=== PATIENT | female | born 1995 | race Caucasian/White ===

== ENCOUNTER 2017-06-10 19:51 | Emergency (ER) | payer OTHER, SELFPAY ==
--- NOTE | 2017-06-10 20:18 | EDM.PDOC ---
ED HPI GENERAL MEDICAL PROBLEM - General Chief Complaint: General Stated Complaint: SOB Time Seen by Provider: 06/10/17 20:07 - History of Present Illness INITIAL COMMENTS - FREE TEXT/NARRATIVE: 21-year-old female presents emergency room with decreased ability to speak and ambulate. This started about an hour and half prior to arrival. About an hour prior to developing these symptoms the patient had some injections into her low back more like acupuncture. Patient has chronic low back problems and hip pain and in the past this was thought to be due to her planned hockey and it was advised that she stop playing hockey. The patient had a flu shot a couple of weeks ago. She denies any drug or alcohol use. This evening the patient became a little shaky with trying to move and had a hard time maintaining her coordination. She has no history of anxiety in the past. She has no history of weakness or problems such as this. Prior to developing his symptoms patient was doing fine and was normal she denies any recent illnesses no fevers or chills. She has had a mild cough. No GI symptoms. - Related Data Allergies Allergy/AdvReac Type Severity Reaction Status Date / Time No Known Allergies Allergy Verified 06/10/17 19:59 Home Meds: Home Meds . [No Known Home Meds] 06/10/17 [History] Social & Family History - Tobacco Use Smoking Status *Q: Never Smoker Second Hand Smoke Exposure: No - Caffeine Use Caffeine Use: Reports: Coffee - Recreational Drug Use Recreational Drug Use: No ED ROS GENERAL - Review of Systems Review Of Systems: See Below Constitutional: Denies: Fever, Chills HEENT: Reports: No Symptoms Respiratory: Reports: No Symptoms Cardiovascular: Reports: No Symptoms GI/Abdominal: Reports: No Symptoms : Reports: No Symptoms ED EXAM, GENERAL - Physical Exam Exam: See Below Exam Limited By: Other (The patient develops shakes are coarse tremor with any sort of muscle activity especially with her lower extremities 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 No: Lymphadenopathy (L), Lymphadenopathy (R) Respiratory/Chest: No Respiratory Distress, Lungs Clear, Normal Breath Sounds Cardiovascular: Normal Peripheral Pulses, Regular Rate, Rhythm, No Edema GI/Abdominal: Normal Bowel Sounds, Soft, Non-Tender Back Exam: Normal Inspection, Muscle Spasm (She has significant paraspinous muscle spasm this is worsened when she tries to move her lower extremities). No : Vertebral Tenderness Extremities: Normal Inspection, No Pedal Edema Neurological: Alert, Slow to Respond, Other (Deep tendon reflexes are brisk at the brachial radialis and patella tendons bilaterally) Psychiatric: Anxious Course - Vital Signs Last Recorded V/S: Last Vital Signs Temp 36.8 C 06/10/17 19:57 Pulse 104 H 06/10/17 19:57 Resp 22 H 06/10/17 19:57 BP 147/115 H 06/10/17 19:57 Pulse Ox 99 06/10/17 19:57 - Orders/Labs/Meds Orders: Active Orders 24 hr Category Date Time Status Head wo Cont [CT] Stat Exams 06/10/17 22:01 Taken Lumbar Spine 2 or 3V [CR] Stat Exams 06/10/17 22:01 Taken Labs: Laboratory Tests 06/10/17 06/10/17 06/10/17 Range/Units 20:20 20:20 20:20 WBC 6.57 (3.98-10.04) K/mm3 RBC 4.25 (3.98-5.22) M/mm3 Hgb 13.1 (11.2-15.7) gm/L Hct 38.0 (34.1-44.9) % MCV 89.4 (79.4-94.8) fl MCH 30.8 (25.6-32.2) pg MCHC 34.5 (32.2-35.5) g/dl RDW Std Deviation 39.0 (36.4-46.3) fL Plt Count 367 (182-369) K/mm3 MPV 9.1 L (9.4-12.3) fl Neutrophils % (Manual) 49 (40-60) % Band Neutrophils % 0 (0-10) % Lymphocytes % (Manual) 36 (20-40) % Atypical Lymphs % 0 % Monocytes % (Manual) 11 H (2-10) % Eosinophils % (Manual) 4 (0.7-5.8) % Basophils % (Manual) 0 L (0.1-1.2) Platelet Estimate Adequate Plt Morphology Comment Normal RBC Morph Comment Normal ESR 14 (0-20) mm/hr Sodium 142 (136-145) mEq/L Potassium 3.5 (3.5-5.1) mEq/L Chloride 104 (98-107) mEq/L Carbon Dioxide 26 (21-32) mEq/L Anion Gap 15.5 H (5-15) BUN 14 (7-18) mg/dL Creatinine 0.9 (0.55-1.02) mg/dL Est Cr Clr Drug Dosing 97.77 mL/min Estimated GFR (MDRD) > 60 (>60) mL/min BUN/Creatinine Ratio 15.6 (14-18) Glucose 93 (74-106) mg/dL Calcium 9.4 (8.5-10.1) mg/dL Total Bilirubin 0.4 (0.2-1.0) mg/dL AST 18 (15-37) U/L ALT 17 (14-59) U/L Alkaline Phosphatase 64 (46-116) U/L Creatine Kinase (26-192) U/L C-Reactive Protein < 0.2 (<1.0) mg/dL Total Protein 7.6 (6.4-8.2) g/dl Albumin 4.5 (3.4-5.0) g/dl Globulin 3.1 gm/dL Albumin/Globulin Ratio 1.5 (1-2) Urine Color (Yellow) Urine Appearance (Clear) Urine pH (5.0-8.0) Ur Specific [place] (1.005-1.030) Urine Protein (Negative) Urine Glucose (UA) (Negative) Urine Ketones (Negative) Urine Occult Blood (Negative) Urine Nitrite (Negative) Urine Bilirubin (Negative) Urine Urobilinogen (0.2-1.0) Ur Leukocyte Esterase (Negative) Urine RBC (0-5) /hpf Urine WBC (0-5) /hpf Ur Epithelial Cells (0-5) /hpf Urine Bacteria (FEW) /hpf Urine Mucus (FEW) /hpf Urine HCG, Qual (NEGATIVE) Urine Opiates Screen (NEGATIVE) Ur Buprenorphine Scrn (NEGATIVE) Ur Oxycodone Screen (NEGATIVE) Urine Methadone Screen (NEGATIVE) Ur Propoxyphene Screen (NEGATIVE) Ur Barbiturates Screen (NEGATIVE) Ur Tricyclics Screen (NEGATIVE) Ur Phencyclidine Scrn (NEGATIVE) Ur Amphetamine Screen (NEGATIVE) U Methamphetamines Scrn (NEGATIVE) U Benzodiazepines Scrn (NEGATIVE) U Cocaine Metab Screen (NEGATIVE) U Marijuana (THC) Screen (NEGATIVE) Ethyl Alcohol 0.00 (0.00) gm% 06/10/17 06/10/17 06/10/17 Range/Units 20:20 20:45 20:45 WBC (3.98-10.04) K/mm3 RBC (3.98-5.22) M/mm3 Hgb (11.2-15.7) gm/L Hct (34.1-44.9) % MCV (79.4-94.8) fl MCH (25.6-32.2) pg MCHC (32.2-35.5) g/dl RDW Std Deviation (36.4-46.3) fL Plt Count (182-369) K/mm3 MPV (9.4-12.3) fl Neutrophils % (Manual) (40-60) % Band Neutrophils % (0-10) % Lymphocytes % (Manual) (20-40) % Atypical Lymphs % % Monocytes % (Manual) (2-10) % Eosinophils % (Manual) (0.7-5.8) % Basophils % (Manual) (0.1-1.2) Platelet Estimate Plt Morphology Comment RBC Morph Comment ESR (0-20) mm/hr Sodium (136-145) mEq/L Potassium (3.5-5.1) mEq/L Chloride (98-107) mEq/L Carbon Dioxide (21-32) mEq/L Anion Gap (5-15) BUN (7-18) mg/dL Creatinine (0.55-1.02) mg/dL Est Cr Clr Drug Dosing mL/min Estimated GFR (MDRD) (>60) mL/min BUN/Creatinine Ratio (14-18) Glucose (74-106) mg/dL Calcium (8.5-10.1) mg/dL Total Bilirubin (0.2-1.0) mg/dL AST (15-37) U/L ALT (14-59) U/L Alkaline Phosphatase (46-116) U/L Creatine Kinase 91 (26-192) U/L C-Reactive Protein (<1.0) mg/dL Total Protein (6.4-8.2) g/dl Albumin (3.4-5.0) g/dl Globulin gm/dL Albumin/Globulin Ratio (1-2) Urine Color Yellow (Yellow) Urine Appearance Clear (Clear) Urine pH 6.5 (5.0-8.0) Ur Specific [place] 1.020 (1.005-1.030) Urine Protein Negative (Negative) Urine Glucose (UA) Negative (Negative) Urine Ketones Negative (Negative) Urine Occult Blood Negative (Negative) Urine Nitrite Negative (Negative) Urine Bilirubin Negative (Negative) Urine Urobilinogen 0.2 (0.2-1.0) Ur Leukocyte Esterase Negative (Negative) Urine RBC 0-5 (0-5) /hpf Urine WBC 0-5 (0-5) /hpf Ur Epithelial Cells 0-5 (0-5) /hpf Urine Bacteria Rare (FEW) /hpf Urine Mucus Not seen (FEW) /hpf Urine HCG, Qual (NEGATIVE) Urine Opiates Screen Negative (NEGATIVE) Ur Buprenorphine Scrn Negative (NEGATIVE) Ur Oxycodone Screen Negative (NEGATIVE) Urine Methadone Screen Negative (NEGATIVE) Ur Propoxyphene Screen Negative (NEGATIVE) Ur Barbiturates Screen Negative (NEGATIVE) Ur Tricyclics Screen Negative (NEGATIVE) Ur Phencyclidine Scrn Negative (NEGATIVE) Ur Amphetamine Screen Negative (NEGATIVE) U Methamphetamines Scrn Negative (NEGATIVE) U Benzodiazepines Scrn Negative (NEGATIVE) U Cocaine Metab Screen Negative (NEGATIVE) U Marijuana (THC) Screen Negative (NEGATIVE) Ethyl Alcohol (0.00) gm% 06/10/17 Range/Units 20:45 WBC (3.98-10.04) K/mm3 RBC (3.98-5.22) M/mm3 Hgb (11.2-15.7) gm/L Hct (34.1-44.9) % MCV (79.4-94.8) fl MCH (25.6-32.2) pg MCHC (32.2-35.5) g/dl RDW Std Deviation (36.4-46.3) fL Plt Count (182-369) K/mm3 MPV (9.4-12.3) fl Neutrophils % (Manual) (40-60) % Band Neutrophils % (0-10) % Lymphocytes % (Manual) (20-40) % Atypical Lymphs % % Monocytes % (Manual) (2-10) % Eosinophils % (Manual) (0.7-5.8) % Basophils % (Manual) (0.1-1.2) Platelet Estimate Plt Morphology Comment RBC Morph Comment ESR (0-20) mm/hr Sodium (136-145) mEq/L Potassium (3.5-5.1) mEq/L Chloride (98-107) mEq/L Carbon Dioxide (21-32) mEq/L Anion Gap (5-15) BUN (7-18) mg/dL Creatinine (0.55-1.02) mg/dL Est Cr Clr Drug Dosing mL/min Estimated GFR (MDRD) (>60) mL/min BUN/Creatinine Ratio (14-18) Glucose (74-106) mg/dL Calcium (8.5-10.1) mg/dL Total Bilirubin (0.2-1.0) mg/dL AST (15-37) U/L ALT (14-59) U/L Alkaline Phosphatase (46-116) U/L Creatine Kinase (26-192) U/L C-Reactive Protein (<1.0) mg/dL Total Protein (6.4-8.2) g/dl Albumin (3.4-5.0) g/dl Globulin gm/dL Albumin/Globulin Ratio (1-2) Urine Color (Yellow) Urine Appearance (Clear) Urine pH (5.0-8.0) Ur Specific [place] (1.005-1.030) Urine Protein (Negative) Urine Glucose (UA) (Negative) Urine Ketones (Negative) Urine Occult Blood (Negative) Urine Nitrite (Negative) Urine Bilirubin (Negative) Urine Urobilinogen (0.2-1.0) Ur Leukocyte Esterase (Negative) Urine RBC (0-5) /hpf Urine WBC (0-5) /hpf Ur Epithelial Cells (0-5) /hpf Urine Bacteria (FEW) /hpf Urine Mucus (FEW) /hpf Urine HCG, Qual Negative (NEGATIVE) Urine Opiates Screen (NEGATIVE) Ur Buprenorphine Scrn (NEGATIVE) Ur Oxycodone Screen (NEGATIVE) Urine Methadone Screen (NEGATIVE) Ur Propoxyphene Screen (NEGATIVE) Ur Barbiturates Screen (NEGATIVE) Ur Tricyclics Screen (NEGATIVE) Ur Phencyclidine Scrn (NEGATIVE) Ur Amphetamine Screen (NEGATIVE) U Methamphetamines Scrn (NEGATIVE) U Benzodiazepines Scrn (NEGATIVE) U Cocaine Metab Screen (NEGATIVE) U Marijuana (THC) Screen (NEGATIVE) Ethyl Alcohol (0.00) gm% Meds: Medications Discontinued Medications Generic Name Dose Route Start Last Admin Trade Name Krys PRN Reason Stop Dose Admin Lactated Ringer's 1,000 mls @ 125 mls/hr 06/10/17 20:30 06/10/17 20:43 Ringers, Lactated IV 125 mls/hr ASDIRECTED VALERY Administration Lorazepam 0.5 mg 06/10/17 20:21 06/10/17 20:43 Ativan IVPUSH 06/10/17 20:22 0.5 mg ONETIME ONE Administration Lorazepam 0.5 mg 06/10/17 22:02 06/10/17 22:10 Ativan IVPUSH 06/10/17 22:03 0.5 mg ONETIME ONE Administration - Re-Assessments/Exams Free Text/Narrative Re-Assessment/Exam: 06/11/17 01:21 Patient had her flu shot couple weeks ago this is not acting like he on [place] and she has brisk deep tendon reflexes at the brachial radialis and patella tendons bilaterally. This is not acting like a flaccid paralysis. This is unclear. Patient received a half milligram of lorazepam and this did help her relax some this was followed up with the second half milligram. The cause of her symptoms I do not believe his acute anxiety she has significant spasm in her lower extremities but her upper extremity weakness is not explained by this. Case discussed with Dr. Barr ER physician at [facility] who will accept the patient case also discussed with Dr. Salvador neurologist at 2 separate occasions first with the CT show 1 a possible Chiari I malformation and secondly with the patient's lower extremity spasticity and near flaccid activity the upper extremities. She recommended MRI testing patient cannot ambulate at this time she'll be transferred to [facility] emergency room. Departure - Departure Time of Disposition: :22 Disposition: DC/Tfer to Acute Hospital 02 Clinical Impression: Muscle spasticity, Muscle weakness - Discharge Information Referrals: PCP,None [Primary Care Provider] - Forms: ED Department Discharge - My Orders Last 24 Hours: My Active Orders 06/10/17 22:01 Head wo Cont [CT] Stat Lumbar Spine 2 or 3V [CR] Stat - Assessment/Plan Last 24 Hours: My Active Orders 06/10/17 22:01 Head wo Cont [CT] Stat Lumbar Spine 2 or 3V [CR] Stat
[2017-06-10] MEDS ORDERED: LORazepam 2 MG/ML MDV IVPUSH ONE ×2 (20:21→22:02)
[2017-06-10] MEDS ORDERED: Lactated Ringers 1,000 ML IV SCH (20:30)
--- NOTE | 2017-06-11 08:06 | CR ---
Lumbar spine: AP and lateral views of the lumbar spine were obtained. Comparison: No previous study. Vertebral body heights and disc spaces are maintained. Pedicles as well as visualized transverse and spinous processes are intact. No fracture or subluxation is seen. Impression: 1. No abnormality is identified on two-view lumbar spine study. Diagnostic code #1
--- NOTE | 2017-06-11 08:06 | CT ---
Head CT Technique: Multiple axial sections through the brain were obtained. Intravenous contrast was not utilized. Comparison: No previous study is available. Findings: Ventricles along with basal cisterns and sulci over the convexities are within normal limits. Cerebellar tonsils slightly descend below the foramen magnum most likely due to Arnold-Chiari 1 variant. No abnormal parenchymal densities are seen. No evidence of intracranial hemorrhage. No midline shift or mass effect is seen. Bone window settings were reviewed which appear unremarkable. Visualized sinuses are clear. Impression: 1. Equivocal descent of the cerebellar tonsils. This is most likely incidental although measurement of descent could be obtained by MRI if patient's clinical symptoms warrant further evaluation. Diagnostic code #2 I agree with preliminary report issued by [facility] ([facility] preliminary report dictated on 06/11/17, 12:18 AM Central Time)
== END 2017-06-11 01:41 ==
LOC: JD.ED 19:51
DX: M62.81 Muscle weakness (generalized) (principal); M62.838 Other muscle spasm
CPT/HCPCS: 36415; 70450; 72100; 80053; 80306; 81001; 81025; 82550; 85025; 85652; 86140; 96361; 96374; 96376; 99285; G0480; J2060; J7120

== ENCOUNTER 2017-11-08 21:32 | Emergency (ER) | payer OTHER ==
--- NOTE | 2017-11-09 00:04 | EDM.PDOC ---
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 Time Seen by Provider: 11/08/17 22:45 Source of Information: Reports: Patient History Limitations: Reports: No Limitations - History of Present Illness INITIAL COMMENTS - FREE TEXT/NARRATIVE: The patient states that she discovered that she was on 10/07/2017. Her LMP was on 09/04/2017 (9w 2d today, by dates). She is . Her Cad Application Support Specialist is Dr. Bowser, who she has seen twice. She underwent an obstetrical ultrasound on 10/28/2017 that demonstrated a SLIUP, with dates anywhere between 5 and 10 weeks. A baseline quantitative hCG was around 6000. The patient now presents because of spotting all day, then passing a clot around 22:00 tonight. She denies having uterine cramps, although she states that she is constipated and does feel some rectal pressure. No fever or emesis. No urinary symptoms. The patient does not have a PCP. Bilateral Lower Abdomen Pain Score (Numeric/FACES): 4 - Related Data Allergies Allergy/AdvReac Type Severity Reaction Status Date / Time No Known Allergies Allergy Verified 11/08/17 21:43 Home Meds: Home Meds . 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 ED EXAM - Physical Exam Exam: See Below Exam Limited By: No Limitations General Appearance: Alert, WD/WN, No Apparent Distress Ears: Normal External Exam, Hearing Grossly Normal Nose: Normal Inspection, No Blood Throat/Mouth: Normal Inspection, Normal Lips, Normal Voice, No Airway Compromise Head: Atraumatic, Normocephalic Neck: Normal Inspection, Full Range of Motion Respiratory/Chest: No Respiratory Distress, Lungs Clear, Normal Breath Sounds, No Accessory Muscle Use Cardiovascular: Normal Peripheral Pulses, Regular Rate, Rhythm, No Gallop, No JVD, No Murmur, No Rub GI/Abdominal Exam: Normal Bowel Sounds, Soft, Non-Tender, No Organomegaly, No Distention, No Abnormal Bruit, No Mass Rectal Exam: Deferred (Female) Exam: Normal External Exam, Vaginal Bleeding, Other (Small amount of clot within the cervical os. Once removed, the cervical os appears to be nulliparous and slightly open. There appears to be a slow exudation of clot from the os.). No: Vaginal Lesions Extremities: Normal Inspection, Normal Range of Motion, No Pedal Edema, Normal Capillary Refill Neurological: Alert, Oriented, Normal Cognition, No Motor/Sensory Deficits Psychiatric: Normal Affect, Anxious Skin Exam: Warm, Dry, Intact, Normal Color, No Rash Course - Vital Signs Last Recorded V/S: Last Vital Signs Temp 36.3 C 11/08/17 21:39 Pulse 91 11/08/17 21:39 Resp 18 11/08/17 21:39 BP 125/83 11/08/17 21:39 Pulse Ox 100 11/08/17 21:39 - Orders/Labs/Meds Orders: Active Orders 24 hr Category Date Time Status OB Transvaginal [US] Stat Exams 11/08/17 22:56 Taken ABO/RH TYPE [BBK] Stat Lab 11/09/17 00:16 Results PATIENT RETYPE [BBK] Stat Lab 11/08/17 23:10 Results Labs: Laboratory Tests 11/08/17 11/08/17 11/08/17 Range/Units 21:44 23:10 23:10 WBC 9.30 (3.98-10.04) K/mm3 RBC 4.45 (3.98-5.22) M/mm3 Hgb 13.6 (11.2-15.7) gm/L Hct 39.2 (34.1-44.9) % MCV 88.1 (79.4-94.8) fl MCH 30.6 (25.6-32.2) pg MCHC 34.7 (32.2-35.5) g/dl RDW Std Deviation 37.9 (36.4-46.3) fL Plt Count 361 (182-369) K/mm3 MPV 8.8 L (9.4-12.3) fl Neutrophils % (Manual) 70 H (40-60) % Band Neutrophils % 0 (0-10) % Lymphocytes % (Manual) 23 (20-40) % Atypical Lymphs % 0 % Monocytes % (Manual) 5 (2-10) % Eosinophils % (Manual) 0 L (0.7-5.8) % Basophils % (Manual) 2 H (0.1-1.2) Toxic Granulation Rare Platelet Estimate Adequate Plt Morphology Comment Normal RBC Morph Comment Normal HCG, Quant 41084.0 mIU/mL Urine Color Light yellow (Yellow) Urine Appearance Clear (Clear) Urine pH 7.0 (5.0-8.0) Ur Specific [place] 1.010 (1.005-1.030) Urine Protein Negative (Negative) Urine Glucose (UA) Negative (Negative) Urine Ketones Negative (Negative) Urine Occult Blood 3+ H (Negative) Urine Nitrite Negative (Negative) Urine Bilirubin Negative (Negative) Urine Urobilinogen 0.2 (0.2-1.0) Ur Leukocyte Esterase Negative (Negative) Urine RBC 0-5 (0-5) /hpf Urine WBC 0-5 (0-5) /hpf Ur Epithelial Cells 0-5 (0-5) /hpf Urine Bacteria Rare (FEW) /hpf Urine Mucus Not seen (FEW) /hpf Blood Type 11/08/17 Range/Units 23:10 WBC (3.98-10.04) K/mm3 RBC (3.98-5.22) M/mm3 Hgb (11.2-15.7) gm/L Hct (34.1-44.9) % MCV (79.4-94.8) fl MCH (25.6-32.2) pg MCHC (32.2-35.5) g/dl RDW Std Deviation (36.4-46.3) fL Plt Count (182-369) K/mm3 MPV (9.4-12.3) fl Neutrophils % (Manual) (40-60) % Band Neutrophils % (0-10) % Lymphocytes % (Manual) (20-40) % Atypical Lymphs % % Monocytes % (Manual) (2-10) % Eosinophils % (Manual) (0.7-5.8) % Basophils % (Manual) (0.1-1.2) Toxic Granulation Platelet Estimate Plt Morphology Comment RBC Morph Comment HCG, Quant mIU/mL Urine Color (Yellow) Urine Appearance (Clear) Urine pH (5.0-8.0) Ur Specific [place] (1.005-1.030) Urine Protein (Negative) Urine Glucose (UA) (Negative) Urine Ketones (Negative) Urine Occult Blood (Negative) Urine Nitrite (Negative) Urine Bilirubin (Negative) Urine Urobilinogen (0.2-1.0) Ur Leukocyte Esterase (Negative) Urine RBC (0-5) /hpf Urine WBC (0-5) /hpf Ur Epithelial Cells (0-5) /hpf Urine Bacteria (FEW) /hpf Urine Mucus (FEW) /hpf Blood Type O POSITIVE - Re-Assessments/Exams Free Text/Narrative Re-Assessment/Exam: 11/09/17 00:03 Notified by the recreational therapy technician that the endometrium appears to be heterogeneous, but no intrauterine seen. 11/09/17 00:[address] Bradley Morgan at 00:14. We discussed the option of giving the patient Cytotec or Methergine, however, since the patient does not have much in the way of urine cramps, he is recommending that we give no treatment at this time. We will check her blood type to see if she would benefit from RhoGAM. 11/09/17 00:43 Transvaginal ultrasound of the uterus is read by [facility] as: No evidence for intrauterine gestational sac yolk sac or pole. The endometrium appears heterogeneous, with questionable echogenic debris within the cervical canal. Findings may be consistent with spontaneous . There is free fluid in the pelvis. Correlate with clinical symptoms. (sic) 11/09/17 01:18 The patient's blood type is O-positive. She does not require RhoGAM. 11/09/17 01:24 Test results discussed with the patient. As above, it appears that the patient has had a spontaneous . I recommended that if her bleeding worsens, or fails to improve, that she either return to the ED or follow up with her Cad Application Support Specialist, Dr. Bowser. Departure - Departure Time of Disposition: 01:24 Disposition: Home, Self-Care 01 Condition: Good Clinical Impression: Spontaneous - Discharge Information Referrals: Danica Bowser MD [Primary Care Provider] - Forms: ED Department Discharge Additional Instructions: You were seen in the emergency room for spotting and passing clots, while . Workup in the ER included blood work, a urinalysis, and a transvaginal ultrasound. Unfortunately, the ultrasound showed no intrauterine . It appears that you have suffered a miscarriage. You should expect a tapering amount of bleeding. If your bleeding gets worse, fails to improve over the next several days, or you develop significant abdominal pain, either return to the ER or follow-up with your Cad Application Support Specialist, Dr. Bowser. - My Orders Last 24 Hours: My Active Orders 11/08/17 22:56 OB Transvaginal [US] Stat 11/08/17 23:10 PATIENT RETYPE [BBK] Stat 11/09/17 00:16 ABO/RH TYPE [BBK] Stat - Assessment/Plan Last 24 Hours: My Active Orders 11/08/17 22:56 OB Transvaginal [US] Stat 11/08/17 23:10 PATIENT RETYPE [BBK] Stat 11/09/17 00:16 ABO/RH TYPE [BBK] Stat
--- NOTE | 2017-11-09 12:46 | US ---
First trimester obstetrical ultrasound: Multiple real-time images were obtained transvaginally. Comparison: No prior obstetrical or pelvic ultrasound. Uterus is retroverted. No intrauterine gestational sac is seen. Endometrial stripe measures 6 mm. Ovaries appear within normal limits. No adnexal abnormalities are appreciated. Measurements: Uterus: Length 7.4 cm, AP height 4.4 cm, transverse width 4.9 cm Right ovary: 3.3 x 1.5 x 2.5 cm Left ovary: 2.8 x 1.6 x 2.1 cm Impression: 1. No intrauterine gestational sac is seen compatible with miscarriage if patient has had prior documented . 2. Endometrial thickness is 6 mm with minimal endocervical debris being seen. Diagnostic code #2 I agree with preliminary report issued by [employer] [facility] ([facility] preliminary report dictated on 11/09/17, 1:40 AM Central Time)
== END 2017-11-09 01:32 | disposition home or self-care (01) ==
LOC: JD.ED 21:32
DX: O03.9 Complete or unspecified spontaneous abortion without complication (principal)
CPT/HCPCS: 36415; 76817; 76817-26; 81001; 84702; 85025; 86900; 86901; 99284; 99284-25

== ENCOUNTER 2019-01-22 01:58 | Inpatient (IN) | payer OTHER ==
[2019-01-22] MEDS ORDERED: Nalbuphine 20 MG/ML 1 ML Syringe IVPUSH PRN (02:19)
[2019-01-22] MEDS ORDERED: Sodium Chloride 0.9% 10 ML Syringe FLUSH PRN (02:19)
[2019-01-22] MEDS ORDERED: Oxytocin/Lactated Ringers 10 UNIT/1,000 ML BAG IV SCH ×2 (02:30→19:00)
--- NOTE | 2019-01-22 06:36 | PCM.LDHP ---
L&D History of Present Illness - General Date of Service: 01/22/19 Admit Problem/Dx: Patient Status Order with Admit Dx/Problem 01/22/19 02:20 Patient Status [ADT] Routine Admission Diagnosis/Problem Admission Diagnosis/Problem Source of Information: Patient History Limitations: Reports: No Limitations - History of Present Illness Introduction:: Patient is a 23 y/o at 39 4/7 wks who presents in early labor. Contractions started about 2200 last night. Became very uncomfortable and so presented at about 0200. Doing well otherwise. Has not slept much. No bleeding or LOF - Related Data Allergies/Adverse Reactions: Allergies Allergy/AdvReac Type Severity Reaction Status Date / Time No Known Allergies Allergy Verified 01/22/19 05:00 Home Medications: Home Meds PNV95/Ferrous Fumarate/FA [ Tablet] 1 each PO DAILY 01/22/19 [History] Past Medical History Respiratory History: Reports: Asthma Other Respiratory History: Sports induced ANIMAL SKINNER History: Reports: , Spontaneous : 2 Para: 0 LMP (Approximate): Musculoskeletal History: Reports: Back Pain, Chronic, Other (See Below) Other Musculoskeletal History: chronic hip pain Dermatologic History: Reports: Eczema - Past Surgical History Musculoskeletal Surgical History: Reports: Other (See Below) (hip injections) Social & Family History - Family History Family Medical History: Noncontributory - Tobacco Use Smoking Status *Q: Never Smoker Second Hand Smoke Exposure: No - Caffeine Use Caffeine Use: Reports: None - Alcohol Use Alcohol Use History: No - Recreational Drug Use Recreational Drug Use: No - Living Situation & Occupation Living situation: Reports: Single, Other (with friends) Occupation: Student ([employer]) H&P Review of Systems - Review of Systems: Review Of Systems: See Below General: Reports: No Symptoms Pulmonary: Reports: No Symptoms Cardiovascular: Reports: No Symptoms Gastrointestinal: Reports: Abdominal Pain Genitourinary: Reports: No Symptoms Musculoskeletal: Reports: No Symptoms Skin: Reports: No Symptoms Neurological: Reports: No Symptoms L&D Exam - Exam Exam: See Below - Vital Signs Vital Signs: Last Vital Signs Temp 36.2 C 01/22/19 02:19 Pulse 77 01/22/19 02:19 Resp 16 01/22/19 02:19 BP 141/90 H 01/22/19 02:19 Pulse Ox 98 01/22/19 02:19 Weight: 79.832 kg - OB Specific Contraction Intensity: Moderate Movement: Active Heart Tones: Present Heart Tones per Min: 140 Heart Rate (FHR) Variability: Moderate (6-25 bmp) Presentation: Vertex - Aguirre Score Aguirre Score Cervix Position: Posterior Aguirre Score Consistency: Soft Aguirre Score Effacement: >80% Aguirre Score Dilation: 1-2 cm Aguirre Score 's Station: -2 Aguirre Score Total: 7 - Exam General: Alert, Oriented, Cooperative Lungs: Clear to Auscultation, Normal Respiratory Effort Cardiovascular: Regular Rate, Regular Rhythm GI/Abdominal Exam: Soft, Non-Tender Genitourinary: Normal external exam Extremities: Normal Inspection Skin: Warm, Dry, Intact - Patient Data Lab Results Last 24 hrs: Laboratory Results - last 24 hr 01/22/19 Range/Units 02:30 WBC 10.19 H (3.98-10.04) K/mm3 RBC 4.14 (3.98-5.22) M/mm3 Hgb 11.9 (11.2-15.7) gm/L Hct 36.1 (34.1-44.9) % MCV 87.2 D (79.4-94.8) fl MCH 28.7 (25.6-32.2) pg MCHC 33.0 (32.2-35.5) g/dl RDW Std Deviation 42.8 (36.4-46.3) fL Plt Count 319 (182-369) K/mm3 MPV 9.6 (9.4-12.3) fl Neut % (Auto) 65.1 (34.0-71.1) % Lymph % (Auto) 23.5 (19.3-51.7) % Gage % (Auto) 8.9 (4.7-12.5) % Eos % (Auto) 1.8 (0.7-5.8) Baso % (Auto) 0.1 (0.1-1.2) % Neut # (Auto) 6.64 H (1.56-6.13) K/mm3 Lymph # (Auto) 2.39 (1.18-3.74) K/mm3 Gage # (Auto) 0.91 H (0.24-0.36) K/mm3 Eos # (Auto) 0.18 (0.04-0.36) K/mm3 Baso # (Auto) 0.01 (0.01-0.08) K/mm3 Result Diagrams: 01/22/19 02:30 - Problem List (1) 39 weeks gestation of SNOMED Code(s): 31521205 ICD Code: Z3A.39 - 39 WEEKS GESTATION OF Status: Acute Current Visit: Yes (2) Normal labor SNOMED Code(s): 25894020 ICD Code: O80 - ENCOUNTER FOR FULL-TERM UNCOMPLICATED DELIVERY; Z37.9 - OUTCOME OF DELIVERY, UNSPECIFIED Status: Acute Current Visit: Yes (3) Rubella non-immune status, antepartum SNOMED Code(s): 886699572 ICD Code: O99.89 - OTH DISEASES AND CONDITIONS COMPL PREG/CHLDBRTH; Z28.3 - UNDERIMMUNIZATION STATUS Status: Acute Current Visit: Yes Problem List Initiated/Reviewed/Updated: No Orders Last 24hrs: Active Orders 24 hr Category Date Time Status Patient Status [ADT] Routine ADT 01/22/19 02:20 Active Activity as Tolerated [RC] PFP Care 01/22/19 02:19 Active Communication Order [RC] ASDIRECTED Care 01/22/19 02:19 Active Heart Tones [RC] ASDIRECTED Care 01/22/19 02:20 Active Non Stress Test [RC] PER UNIT ROUTINE Care 01/22/19 02:19 Active Notify Provider [RC] PFP Care 01/22/19 02:19 Active Notify Provider [RC] PRN Care 01/22/19 02:19 Active Peripheral IV Care [RC] . DIRECTED Care 01/22/19 02:20 Active Vital Signs [RC] PER UNIT ROUTINE Care 01/22/19 02:19 Active Regular Diet [DIET] Diet 01/22/19 Breakfast Active RAPID PLASMA REAGIN,RPR [CHEM] Routine Lab 01/22/19 02:19 Ordered Lactated Ringers [Ringers, Lactated] 1,000 ml Med 01/22/19 02:30 Active IV ASDIRECTED Nalbuphine [Nubain] Med 01/22/19 02:19 Active 10 mg IVPUSH Q2H PRN Oxytocin/Lactated Ringers [Pitocin in LR 10 Units/1,000 Med 01/22/19 02:30 Active ML] 10 unit in 1,000 ml IV .CONTINUOUS Sodium Chloride 0.9% [Saline Flush] Med 01/22/19 02:19 Active 10 ml FLUSH ASDIRECTED PRN Electronic Heart Tones Ext w TOCO [WOMSER] Oth 01/22/19 02:19 Ordered Routine Electronic Heart Tones Internal [WOMSER] Per Unit Oth 01/22/19 02:19 Ordered Routine Peripheral IV Insertion Adult [OM.PC] Routine Oth 01/22/19 02:19 Ordered Resuscitation Status Routine Resus Stat 01/22/19 02:19 Ordered Medication Orders Lactated Ringer's (Ringers, Lactated) 1,000 mls @ 100 mls/hr IV ASDIRECTED VALERY Oxytocin/Lactated Ringer's (Pitocin In Lr 10 Units/1,000 Ml) 10 unit in 1,000 mls @ 500 mls/hr IV .CONTINUOUS VALERY Nalbuphine HCl (Nubain) 10 mg IVPUSH Q2H PRN PRN Reason: pain Sodium Chloride (Saline Flush) 10 ml FLUSH ASDIRECTED PRN PRN Reason: Keep Vein Open Assessment/Plan Comment:: 23 y/o at 39 4/7 wks presents in early labor * Labs * GBS negative, no need for antibiotics * AROM done, clear fluid * Pain management per patient preference * Anticipate * Rubella non immune, MMR after delivery
[2019-01-22] MEDS: Lactated Ringers 1,000 ML IV SCH ×6 (08:03→19:44)
[2019-01-22] MEDS ORDERED: ePHEDrine 50 MG/ML SDV IVPUSH PRN (09:05)
[2019-01-22] MEDS ORDERED: diphenhydrAMINE 50 MG/ML SDV IVPUSH PRN (09:05)
[2019-01-22] MEDS ORDERED: fentaNYL 100 MCG/2 ML SDV EPIDUR PRN (09:05)
[2019-01-22] MEDS ORDERED: fentaNYL 100 MCG/2 ML SDV ONE (09:10)
[2019-01-22] MEDS: Bupivacaine/fentaNYL/NS 100 ML Bag EPIDUR PRN ×2 (09:30→17:24)
--- NOTE | 2019-01-22 09:35 | PCM.PREANE ---
Preanesthetic Assessment - Procedure Proposed Procedure: flor - Anesthesia/Transfusion/Family Hx Anesthesia History: Prior Anesthesia Without Reaction Type of Anesthesia Reaction: Other (see below) (nausea) Family History of Anesthesia Reaction: No Transfusion History: No Prior Transfusion(s) - Review of Systems General: No Symptoms Pulmonary: No Symptoms Cardiovascular: No Symptoms Gastrointestinal: No Symptoms Neurological: No Symptoms Other: Reports: None - Physical Assessment O2 Sat by Pulse Oximetry: 98 Respiratory Rate: 16 Vital Signs: Last Vital Signs Temp 97.2 F 01/22/19 02:19 Pulse 77 01/22/19 02:19 Resp 16 01/22/19 02:19 BP 141/90 H 01/22/19 02:19 Pulse Ox 98 01/22/19 02:19 Height: 5 ft 3 in Weight: 79.832 kg ASA Class: 2 Mental Status: Alert & Oriented x3 Airway Class: Mallampati = 1 Dentition: Reports: Normal Dentition Thyro-Mental Finger Breadths: 3 Mouth Opening Finger Breadths: 3 ROM/Head Extension: Full Lungs: Clear to Auscultation, Normal Respiratory Effort Cardiovascular: Regular Rate, Regular Rhythm - Lab Values: Laboratory Last Values WBC 10.19 K/mm3 (3.98-10.04) H 01/22/19 02:30 RBC 4.14 M/mm3 (3.98-5.22) 01/22/19 02:30 Hgb 11.9 gm/L (11.2-15.7) 01/22/19 02:30 Hct 36.1 % (34.1-44.9) 01/22/19 02:30 MCV 87.2 fl (79.4-94.8) D 01/22/19 02:30 MCH 28.7 pg (25.6-32.2) 01/22/19 02:30 MCHC 33.0 g/dl (32.2-35.5) 01/22/19 02:30 RDW Std Deviation 42.8 fL (36.4-46.3) 01/22/19 02:30 Plt Count 319 K/mm3 (182-369) 01/22/19 02:30 MPV 9.6 fl (9.4-12.3) 01/22/19 02:30 Neut % (Auto) 65.1 % (34.0-71.1) 01/22/19 02:30 Lymph % (Auto) 23.5 % (19.3-51.7) 01/22/19 02:30 Mckean % (Auto) 8.9 % (4.7-12.5) 01/22/19 02:30 Eos % (Auto) 1.8 (0.7-5.8) 01/22/19 02:30 Baso % (Auto) 0.1 % (0.1-1.2) 01/22/19 02:30 Neut # (Auto) 6.64 K/mm3 (1.56-6.13) H 01/22/19 02:30 Lymph # (Auto) 2.39 K/mm3 (1.18-3.74) 01/22/19 02:30 Mckean # (Auto) 0.91 K/mm3 (0.24-0.36) H 01/22/19 02:30 Eos # (Auto) 0.18 K/mm3 (0.04-0.36) 01/22/19 02:30 Baso # (Auto) 0.01 K/mm3 (0.01-0.08) 01/22/19 02:30 - Allergies Allergies/Adverse Reactions: Allergies Allergy/AdvReac Type Severity Reaction Status Date / Time No Known Allergies Allergy Verified 01/22/19 05:00 - Blood Blood Available: No - Acknowledgements Anesthesia Type Planned: Epidural Pt an Appropriate Candidate for the Planned Anesthesia: Yes Alternatives and Risks of Anesthesia Discussed w Pt/Guardian: Yes Pt/Guardian Understands and Agrees with Anesthesia Plan: Yes PreAnesthesia Questionnaire - Past Health History Medical/Surgical History: Denies Medical/Surgical History Cardiovascular History: Reports: None Respiratory History: Reports: Asthma (sports induced asthma) Other Respiratory History: Sports induced, has not used an inhaler in years. Gastrointestinal History: Reports: None [employer] History: Reports: , Spontaneous Musculoskeletal History: Reports: Back Pain, Chronic, Other (See Below) Other Musculoskeletal History: chronic hip pain Dermatologic History: Reports: Eczema - Past Surgical History Musculoskeletal Surgical History: Reports: Other (See Below) (steroid injection si joint) - SUBSTANCE USE Smoking Status *Q: Never Smoker Tobacco Use Within Last Twelve Months: No Second Hand Smoke Exposure: No Days Per Week of Alcohol Use: 0 Recreational Drug Use History: No - HOME MEDS Home Medications: Home Meds PNV95/Ferrous Fumarate/FA [ Tablet] 1 each PO DAILY 01/22/19 [History] - CURRENT (IN HOUSE) MEDS Current Meds: Current Medications Diphenhydramine HCl (Benadryl) 25 mg IVPUSH Q6H PRN PRN Reason: pruritis Ephedrine Sulfate (Ephedrine Sulfate) 5 mg IVPUSH ASDIRECTED PRN PRN Reason: Hypotension Fentanyl (Sublimaze) 100 mcg EPIDUR Q3H PRN PRN Reason: Pain Last Admin: 01/22/19 09:31 Dose: 100 mcg Fentanyl/Bupivacaine HCl (Fentanyl/Bupivacaine/Ns 2 Mcg-0.125% 100 Ml) 100 ml EPIDUR ASDIRECTED PRN PRN Reason: Pain Last Admin: 01/22/19 09:30 Dose: 100 ml Lactated Ringer's (Ringers, Lactated) 1,000 mls @ 100 mls/hr IV ASDIRECTED VALERY Last Admin: 01/22/19 09:18 Dose: 999 mls/hr Oxytocin/Lactated Ringer's (Pitocin In Lr 10 Units/1,000 Ml) 10 unit in 1,000 mls @ 500 mls/hr IV .CONTINUOUS VALERY Nalbuphine HCl (Nubain) 10 mg IVPUSH Q2H PRN PRN Reason: pain Sodium Chloride (Saline Flush) 10 ml FLUSH ASDIRECTED PRN PRN Reason: Keep Vein Open Discontinued Medications Fentanyl (Sublimaze) Confirm Administered Dose 100 mcg .ROUTE .STK-MED ONE Stop: 01/22/19 09:11
[2019-01-22] MEDS ORDERED: diphenhydrAMINE 50 MG/ML SDV IVPUSH ONE (20:20)
[2019-01-22] MEDS ORDERED: Acetaminophen 325 MG Tab PO PRN (20:21)
--- NOTE | 2019-01-22 21:34 | PCM.PNLD ---
Labor Progress Note - VS & Meds Vital Signs: Last Vital Signs Temp 36.2 C 01/22/19 02:19 Pulse 74 01/22/19 10:30 Resp 16 01/22/19 09:35 BP 113/61 01/22/19 10:30 Pulse Ox 98 01/22/19 09:35 Active Medications: Current Medications Acetaminophen (Tylenol) 650 mg PO Q4H PRN PRN Reason: Headache Last Admin: 01/22/19 20:15 Dose: 650 mg Diphenhydramine HCl (Benadryl) 25 mg IVPUSH Q6H PRN PRN Reason: pruritis Ephedrine Sulfate (Ephedrine Sulfate) 5 mg IVPUSH ASDIRECTED PRN PRN Reason: Hypotension Fentanyl (Sublimaze) 100 mcg EPIDUR Q3H PRN PRN Reason: Pain Last Admin: 01/22/19 09:31 Dose: 100 mcg Fentanyl/Bupivacaine HCl (Fentanyl/Bupivacaine/Ns 2 Mcg-0.125% 100 Ml) 100 ml EPIDUR ASDIRECTED PRN PRN Reason: Pain Last Admin: 01/22/19 17:24 Dose: 100 ml Lactated Ringer's (Ringers, Lactated) 1,000 mls @ 100 mls/hr IV ASDIRECTED VALERY Last Admin: 01/22/19 19:44 Dose: 125 mls/hr Oxytocin/Lactated Ringer's (Pitocin In Lr 10 Units/1,000 Ml) 10 unit in 1,000 mls @ 500 mls/hr IV .CONTINUOUS VALERY Oxytocin/Lactated Ringer's (Pitocin In Lr 10 Units/1,000 Ml) 10 unit in 1,000 mls @ 12 mls/hr IV TITRATE VALERY; Protocol Last Admin: 01/22/19 19:44 Dose: 2 munits/min, 12 mls/hr Nalbuphine HCl (Nubain) 10 mg IVPUSH Q2H PRN PRN Reason: pain Sodium Chloride (Saline Flush) 10 ml FLUSH ASDIRECTED PRN PRN Reason: Keep Vein Open Discontinued Medications Diphenhydramine HCl (Benadryl) 50 mg IVPUSH ONETIME ONE Stop: 01/22/19 20:21 Last Admin: 01/22/19 20:28 Dose: 50 mg Fentanyl (Sublimaze) Confirm Administered Dose 100 mcg .ROUTE .STK-MED ONE Stop: 01/22/19 09:11 Last Admin: 01/22/19 09:53 Dose: Not Given - Uterine Contractions Uterine Monitoring Mode: External [place] Contraction Intensity: Moderate - Monitoring Heart Rate (FHR) Baseline: 140 Heart Rate (FHR) Variability: Moderate (6-25 bmp) - Vaginal Exam Dilation (cm): 8 Effacement (Percent): 90 Station: -3 Cervical Position: Midposition - Labor Progress (Free Text) Labor Progress: Progressing well. Epidural has been in place since mid morning.
[2019-01-23] MEDS ORDERED: Bupivacaine 0.25% 10 ML SDV ONE
[2019-01-23] MEDS ORDERED: Citric Acid/Sodium Citrate Solution 30 ML Cup ONE (00:21)
[2019-01-23] MEDS ORDERED: Metoclopramide 10 MG/2 ML SDV ONE (00:21)
[2019-01-23] MEDS ORDERED: Metoclopramide 10 MG/2 ML SDV IVPUSH ONE (00:24)
[2019-01-23] MEDS ORDERED: Sodium Chloride 0.9% 10 ML Syringe FLUSH PRN (00:24)
[2019-01-23] MEDS ORDERED: ceFAZolin 2 GM in Premix Bag 1 BAG IV ONE (00:24)
[2019-01-23] MEDS ORDERED: Nalbuphine 20 MG/ML 1 ML Syringe IVPUSH PRN (00:24)
[2019-01-23] MEDS ORDERED: Citric Acid/Sodium Citrate Solution 30 ML Cup PO ONE (00:24)
[2019-01-23] MEDS ORDERED: Azithromycin 500 MG in Sodium Chloride 0.9% 250 ML IV ONE (00:25)
--- NOTE | 2019-01-23 00:27 | PCM.PNLD ---
Labor Progress Note - VS & Meds Vital Signs: Last Vital Signs Temp 36.2 C 01/22/19 02:19 Pulse 74 01/22/19 10:30 Resp 16 01/22/19 09:35 BP 113/61 01/22/19 10:30 Pulse Ox 98 01/22/19 09:35 Active Medications: Current Medications Acetaminophen (Tylenol) 650 mg PO Q4H PRN PRN Reason: Headache Last Admin: 01/22/19 20:15 Dose: 650 mg Diphenhydramine HCl (Benadryl) 25 mg IVPUSH Q6H PRN PRN Reason: pruritis Ephedrine Sulfate (Ephedrine Sulfate) 5 mg IVPUSH ASDIRECTED PRN PRN Reason: Hypotension Fentanyl (Sublimaze) 100 mcg EPIDUR Q3H PRN PRN Reason: Pain Last Admin: 01/22/19 09:31 Dose: 100 mcg Fentanyl/Bupivacaine HCl (Fentanyl/Bupivacaine/Ns 2 Mcg-0.125% 100 Ml) 100 ml EPIDUR ASDIRECTED PRN PRN Reason: Pain Last Admin: 01/22/19 17:24 Dose: 100 ml Lactated Ringer's (Ringers, Lactated) 1,000 mls @ 100 mls/hr IV ASDIRECTED VALERY Last Admin: 01/22/19 19:44 Dose: 125 mls/hr Oxytocin/Lactated Ringer's (Pitocin In Lr 10 Units/1,000 Ml) 10 unit in 1,000 mls @ 500 mls/hr IV .CONTINUOUS VALERY Oxytocin/Lactated Ringer's (Pitocin In Lr 10 Units/1,000 Ml) 10 unit in 1,000 mls @ 12 mls/hr IV TITRATE VALERY; Protocol Last Admin: 01/22/19 19:44 Dose: 2 munits/min, 12 mls/hr Nalbuphine HCl (Nubain) 10 mg IVPUSH Q2H PRN PRN Reason: pain Sodium Chloride (Saline Flush) 10 ml FLUSH ASDIRECTED PRN PRN Reason: Keep Vein Open Discontinued Medications Citric Acid/Sodium Citrate (Bicitra Solution) Confirm Administered Dose 30 ml .ROUTE .STK-MED ONE Stop: 01/23/19 00:22 Diphenhydramine HCl (Benadryl) 50 mg IVPUSH ONETIME ONE Stop: 01/22/19 20:21 Last Admin: 01/22/19 20:28 Dose: 50 mg Fentanyl (Sublimaze) Confirm Administered Dose 100 mcg .ROUTE .STK-MED ONE Stop: 01/22/19 09:11 Last Admin: 01/22/19 09:53 Dose: Not Given Metoclopramide HCl (Reglan) Confirm Administered Dose 10 mg .ROUTE .STK-MED ONE Stop: 01/23/19 00:22 - Uterine Contractions Uterine Monitoring Mode: External [place] Contraction Intensity: Moderate - Monitoring Heart Rate (FHR) Baseline: 140 Heart Rate (FHR) Variability: Moderate (6-25 bmp) - Vaginal Exam Dilation (cm): 10 Effacement (Percent): 100 Station: 2 Cervical Position: Midposition - Labor Progress (Free Text) Labor Progress: Patient pushing for 3 hours. Minimal progress. Vacuum attempt x1 contraction with no further descent of head. Will proceed with section
[2019-01-23] MEDS ORDERED: Morphine PF 1 MG/ML Amp ONE (00:28)
[2019-01-23] MEDS ORDERED: Ketorolac 30 MG/ML SDV ONE (00:28)
[2019-01-23] MEDS ORDERED: ceFAZolin 1 GM Vial ONE (00:28)
[2019-01-23] MEDS ORDERED: Oxytocin 10 Units/1 ML SDV ONE (00:28)
[2019-01-23] MEDS ORDERED: Lactated Ringers 2,000 ML ONE (00:28)
[2019-01-23] MEDS ORDERED: Ondansetron 4 MG/2 ML SDV ONE (00:28)
[2019-01-23] MEDS ORDERED: Lactated Ringers 1,000 ML IV SCH (00:30)
[2019-01-23] MEDS ORDERED: Bupivacaine 0.5% 30 ML SDV ONE (00:31)
[2019-01-23] MEDS ORDERED: Sodium Bicarbonate 8.4% 50 MEQ/50 ML SDV ONE (00:34)
[2019-01-23] MEDS ORDERED: Lidocaine 2% with EPINEPHrine 1:200,000 20 ML SDV ONE (00:34)
[2019-01-23] MEDS ORDERED: ePHEDrine/Normal Saline 25 MG/5 ML Syringe ONE (01:07)
[2019-01-23] MEDS ORDERED: Meperidine 50 MG/ML Vial ONE (01:19)
[2019-01-23] MEDS ORDERED: diphenhydrAMINE 50 MG/ML SDV IVPUSH PRN ×2 (01:24→02:25)
[2019-01-23] MEDS ORDERED: Ondansetron 4 MG/2 ML SDV IVPUSH PRN (01:24)
[2019-01-23] MEDS ORDERED: fentaNYL 100 MCG/2 ML SDV IVPUSH PRN (01:24)
[2019-01-23] MEDS ORDERED: Phenylephrine/Normal Saline 100 MCG/ML 10 ML Syringe ONE (01:31)
--- NOTE | 2019-01-23 02:01 | PCM.OPNOTE ---
- General Post-Op/Procedure Note Date of Surgery/Procedure: 01/23/19 Findings: Viable male, OP 8 lbs. 6 oz. Apgars 9 and 9 at 0118 Pre Op Diagnosis: Occiput posterior, failure to descend Post-Op Diagnosis: Same Primary Surgeon: Brooke Hernandez Anesthesia Provider: Wisam Maceil Fluid Replacement, Intraop: 1,700 Output, Urine Amount: 75 EBL in mLs: 1,200 Condition: Good Free Text/Narrative:: Intake & Output 01/22/19 01/22/19 01/23/19 14:59 22:59 06:59 Intake Total 3000 100 Balance 3000 100 The patient was taken to the operating room where epidural anesthesia was dosed to surgical levels without difficulty. The patient was prepped and draped in the usual sterile fashion in the dorsal supine position with a leftward tilt. A Pfannenstiel skin incision was made with the scalpel and carried through to the underlying layer of fascia. The fascia was incised in the midline and extended laterally using Choe scissors. Elizabeth clamps were used to elevate the superior aspect of the fascial incision, which was elevated, and the underlying rectus muscles were dissected off bluntly and using Choe scissors. Attention was then turned to the inferior aspect of the fascial incision, which in similar fashion was grasped with Elizabeth clamps, elevated, and the underlying rectus muscles were dissected off bluntly and using the choe. The rectus muscles were dissected in the midline. The peritoneum was entered bluntly; this incision was extended superiorly and inferiorly with good visualization of the bladder. The bladder blade was inserted. The vesicouterine peritoneum was identified and entered sharply using Metzenbaum scissors. This incision was extended laterally and the bladder flap was created digitally. The bladder blade was reinserted. The lower uterine segment was incised in a transverse fashion using the scalpel and with digital traction. Clear fluid was noted. The was subsequently delivered by flexing the head to the incision. Body and shoulders followed without difficulty. The cord was clamped and cut. The was subsequently handed to the awaiting blade balancer whose presence had been requested.. The placenta was delivered spontaneously intact with a three-vessel cord noted. The uterus was exteriorized and cleared of all clots and debris. The uterine incision was repaired in 2 layers using 0 monocryl. Hemostasis was visualized. Hemostasis was visualized bilaterally. The uterus was returned to the abdomen. The uterine incision was reexamined and it was noted to be hemostatic. The pelvis was copiously irrigated. The fascia was closed with 1 PDS suture, and the skin was closed with 3-0 monocryl. Sponge, lap, and instrument counts were correct x2. The patient was stable at the completion of the procedure and was subsequently transferred to the recovery room in stable condition.
--- NOTE | 2019-01-23 02:01 | PCM.POSTAN ---
POST ANESTHESIA ASSESSMENT - MENTAL STATUS Mental Status: Alert, Oriented - VITAL SIGNS Pulse Rate: 100 SaO2: 100 Resp Rate: 20 Blood Pressure: 103/63 Temperature: 98.5 F - RESPIRATORY Respiratory Status: Respiratory Rate WNL, Airway Patent, O2 Saturation Stable, Supplemental Oxygen - CARDIOVASCULAR CV Status: Pulse Rate WNL, Blood Pressure Stable - GASTROINTESTINAL GI Status: No Symptoms - PAIN Pain Score: 0 - POST OP HYDRATION Hydration Status: Adequate & Stable
[2019-01-23] MEDS ORDERED: Dextrose 5%-Lactated Ringers 1,000 ML IV SCH (02:25)
[2019-01-23] MEDS ORDERED: Naloxone 0.4 MG/ML SDV IVPUSH PRN (02:25)
[2019-01-23] MEDS ORDERED: Lanolin 100% Cream 7 GM Tube TOP PRN (02:25)
[2019-01-23] MEDS ORDERED: ePHEDrine 50 MG/ML SDV IVPUSH PRN (02:25)
[2019-01-23] MEDS: Ketorolac 30 MG/ML SDV IVPUSH SCH ×3 (09:03→20:00)
--- NOTE | 2019-01-23 10:20 | PCM48HPAN ---
Post Anesthesia Note - EVALUATION WITHIN 48HRS OF ANESTHETIC Vital Signs in Normal Range: Yes Patient Participated in Evaluation: Yes Respiratory Function Stable: Yes Airway Patent: Yes Cardiovascular Function Stable: Yes Hydration Status Stable: Yes Pain Control Satisfactory: Yes Nausea and Vomiting Control Satisfactory: Yes Mental Status Recovered: Yes (very pleased) Pulse Rate: 100 Resp Rate: 15 Temperature: 98.5 F Blood Pressure: 103/63
[2019-01-23] MEDS: Simethicone 80 MG Tab.Chew PO PRN ×2 (15:48→20:00)
[2019-01-24] MEDS: Acetaminophen/oxyCODONE 325-5 MG Tab PO PRN ×3 (00:28→21:07)
[2019-01-24] MEDS: Ibuprofen 600 MG Tab PO PRN ×4 (03:50→19:52)
--- NOTE | 2019-01-24 08:03 | PCM.PNPP ---
- General Info Date of Service: 01/24/19 Admission Dx/Problem (Free Text): 23 year old POD2 from 1LTCS. Tolerating anemia. Ambulating, voiding well, tolerating POs. Does not desire discharge. Functional Status: Reports: Pain Controlled - Review of Systems General: Reports: No Symptoms HEENT: Reports: No Symptoms Pulmonary: Reports: No Symptoms Cardiovascular: Reports: No Symptoms Gastrointestinal: Reports: No Symptoms Genitourinary: Reports: No Symptoms Musculoskeletal: Reports: No Symptoms Skin: Reports: No Symptoms Neurological: Reports: No Symptoms Psychiatric: Reports: No Symptoms - General Info Date of Service: 01/24/19 - Patient Data Vital Signs - Most Recent: Last Vital Signs Temp 36.9 C 01/24/19 03:40 Pulse 118 H 01/24/19 03:40 Resp 14 01/24/19 03:40 BP 118/67 01/24/19 03:40 Pulse Ox 98 01/24/19 03:40 Weight - Most Recent: 79.832 kg I&O - Last 24 Hours: Intake & Output 01/23/19 01/24/19 01/24/19 22:59 06:59 14:59 Intake Total 1000 Output Total 775 1200 Balance -775 -200 Lab Results - Last 24 Hours: Laboratory Results - last 24 hr 01/24/19 Range/Units 05:45 WBC 20.04 H (3.98-10.04) K/mm3 RBC 2.49 L (3.98-5.22) M/mm3 Hgb 7.1 L* (11.2-15.7) gm/L Hct 22.4 L (34.1-44.9) % MCV 90.0 (79.4-94.8) fl MCH 28.5 (25.6-32.2) pg MCHC 31.7 L (32.2-35.5) g/dl RDW Std Deviation 45.1 (36.4-46.3) fL Plt Count 243 (182-369) K/mm3 MPV 9.0 L (9.4-12.3) fl Neut % (Auto) 78.4 H (34.0-71.1) % Lymph % (Auto) 12.9 L (19.3-51.7) % [place] % (Auto) 7.3 (4.7-12.5) % Eos % (Auto) 0.9 (0.7-5.8) Baso % (Auto) 0.1 (0.1-1.2) % Neut # (Auto) 15.68 H (1.56-6.13) K/mm3 Lymph # (Auto) 2.59 (1.18-3.74) K/mm3 [place] # (Auto) 1.47 H (0.24-0.36) K/mm3 Eos # (Auto) 0.18 (0.04-0.36) K/mm3 Baso # (Auto) 0.03 (0.01-0.08) K/mm3 Manual Slide Review Abnormal smear Med Orders - Current: Current Medications Diphenhydramine HCl (Benadryl) 25 mg IVPUSH Q6H PRN PRN Reason: Itching or Nausea Emollient Ointment (Lansinoh Hpa) 0 gm TOP ASDIRECTED PRN PRN Reason: Sore Nipples Ephedrine Sulfate (Ephedrine Sulfate) 5 mg IVPUSH SEECOMMENT PRN PRN Reason: Other Ibuprofen (Motrin) 600 mg PO Q4HR PRN PRN Reason: Pain (moderate 4-6) Last Admin: 01/24/19 03:50 Dose: 600 mg Naloxone HCl (Narcan) 0.1 mg IVPUSH SEECOMMENT PRN PRN Reason: Respiratory Depression Oxycodone/Acetaminophen (Percocet 325-5 Mg) 2 tab PO Q4H PRN PRN Reason: Pain Last Admin: 01/24/19 00:28 Dose: 2 tab Simethicone (Simethicone) 80 mg PO Q4H PRN PRN Reason: Gas Last Admin: 01/23/19 20:00 Dose: 80 mg Discontinued Medications Acetaminophen (Tylenol) 650 mg PO Q4H PRN PRN Reason: Headache Last Admin: 01/22/19 20:15 Dose: 650 mg Bupivacaine HCl (Marcaine 0.5%) Confirm Administered Dose 30 ml .ROUTE .STK-MED ONE Stop: 01/23/19 00:32 Last Admin: 01/23/19 01:10 Dose: 20 ml Cefazolin Sodium (Ancef) Confirm Administered Dose 2 gm .ROUTE .STK-MED ONE Stop: 01/23/19 00:29 Citric Acid/Sodium Citrate (Bicitra Solution) Confirm Administered Dose 30 ml .ROUTE .[employer]-MED ONE Stop: 01/23/19 00:22 Last Admin: 01/23/19 00:25 Dose: 30 ml Citric Acid/Sodium Citrate (Bicitra Solution) 30 ml PO ONETIME ONE Stop: 01/23/19 00:25 Last Admin: 01/23/19 00:29 Dose: 30 ml Diphenhydramine HCl (Benadryl) 25 mg IVPUSH Q6H PRN PRN Reason: pruritis Diphenhydramine HCl (Benadryl) 50 mg IVPUSH ONETIME ONE Stop: 01/22/19 20:21 Last Admin: 01/22/19 20:28 Dose: 50 mg Diphenhydramine HCl (Benadryl) 25 mg IVPUSH Q6H PRN PRN Reason: pruritis Ephedrine Sulfate (Ephedrine Sulfate) 5 mg IVPUSH ASDIRECTED PRN PRN Reason: Hypotension Ephedrine Sulfate (Ephedrine In Ns) Confirm Administered Dose 25 mg .ROUTE .[employer] ONE Stop: 01/23/19 01:08 Fentanyl (Sublimaze) 100 mcg EPIDUR Q3H PRN PRN Reason: Pain Last Admin: 01/22/19 09:31 Dose: 100 mcg Fentanyl (Sublimaze) Confirm Administered Dose 100 mcg .ROUTE .[employer] ONE Stop: 01/22/19 09:11 Last Admin: 01/22/19 09:53 Dose: Not Given Fentanyl (Sublimaze) 50 mcg IVPUSH Q5M PRN PRN Reason: Pain Fentanyl/Bupivacaine HCl (Fentanyl/Bupivacaine/Ns 2 Mcg-0.125% 100 Ml) 100 ml EPIDUR ASDIRECTED PRN PRN Reason: Pain Last Admin: 01/22/19 17:24 Dose: 100 ml Lactated Ringer's (Ringers, Lactated) 1,000 mls @ 100 mls/hr IV ASDIRECTED [facility] Last Admin: 01/22/19 19:44 Dose: 125 mls/hr Oxytocin/Lactated Ringer's (Pitocin In Lr 10 Units/1,000 Ml) 10 unit in 1,000 mls @ 500 mls/hr IV .CONTINUOUS VALERY Oxytocin/Lactated Ringer's (Pitocin In Lr 10 Units/1,000 Ml) 10 unit in 1,000 mls @ 12 mls/hr IV TITRATE VALERY; Protocol Last Admin: 01/22/19 19:44 Dose: 2 munits/min, 12 mls/hr Azithromycin 500 mg/ Sodium (Chloride) 250 mls @ 250 mls/hr IV ONETIME ONE Stop: 01/23/19 01:24 Last Admin: 01/23/19 00:45 Dose: 250 mls/hr Cefazolin Sodium/Dextrose 2 gm (/ Premix) 50 mls @ 100 mls/hr IV ONETIME ONE Stop: 01/23/19 00:53 Last Admin: 01/23/19 04:20 Dose: Not Given Lactated Ringer's (Ringers, Lactated) 1,000 mls @ 125 mls/hr IV ASDIRECTED [facility] Lactated Ringer's (Ringers, Lactated) Confirm Administered Dose 2,000 mls @ as directed .ROUTE .STK-MED ONE Stop: 01/23/19 00:29 Dextrose/Lactated Ringer's (Dextrose 5%-Lactated Ringers) 1,000 mls @ 125 mls/ hr IV ASDIRECTED [facility] Stop: 01/23/19 10:24 Last Admin: 01/23/19 04:21 Dose: 125 mls/hr Ketorolac Tromethamine (Toradol) Confirm Administered Dose 30 mg .ROUTE .STK- MED ONE Stop: 01/23/19 00:29 Ketorolac Tromethamine (Toradol) 30 mg IVPUSH Q6H [facility] Stop: 01/23/19 20:01 Last Admin: 01/23/19 20:00 Dose: 30 mg Lidocaine/Epinephrine (Xylocaine-Mpf 2%-Epi 1:200,000) Confirm Administered Dose 20 ml .ROUTE .STK-MED ONE Stop: 01/23/19 00:35 Meperidine HCl (Meperidine) Confirm Administered Dose 50 mg .ROUTE .STK-MED ONE Stop: 01/23/19 01:20 Metoclopramide HCl (Reglan) Confirm Administered Dose 10 mg .ROUTE .STK-MED ONE Stop: 01/23/19 00:22 Last Admin: 01/23/19 04:21 Dose: Not Given Metoclopramide HCl (Reglan) 10 mg IVPUSH ONETIME ONE Stop: 01/23/19 00:25 Last Admin: 01/23/19 00:25 Dose: 10 mg Morphine Sulfate (Duramorph Pf) Confirm Administered Dose 1 mg .ROUTE .STK-MED ONE Stop: 01/23/19 00:29 Nalbuphine HCl (Nubain) 10 mg IVPUSH Q2H PRN PRN Reason: pain Nalbuphine HCl (Nubain) 10 mg IVPUSH Q2H PRN PRN Reason: pain Ondansetron HCl (Zofran) Confirm Administered Dose 4 mg .ROUTE .STK-MED ONE Stop: 01/23/19 00:29 Ondansetron HCl (Zofran) 4 mg IVPUSH ONETIME PRN PRN Reason: Nausea/Vomiting Oxytocin (Pitocin) Confirm Administered Dose 10 unit .ROUTE .STK-MED ONE Stop: 01/23/19 00:29 Phenylephrine HCl (Phenylephrine In Ns 100 Mcg/Ml) Confirm Administered Dose 1 mg .ROUTE .STK-MED ONE Stop: 01/23/19 01:32 Sodium Bicarbonate (Sodium Bicarbonate 8.4%) Confirm Administered Dose 50 meq .ROUTE .STK-MED ONE Stop: 01/23/19 00:35 Sodium Chloride (Saline Flush) 10 ml FLUSH ASDIRECTED PRN PRN Reason: Keep Vein Open Sodium Chloride (Saline Flush) 10 ml FLUSH ASDIRECTED PRN PRN Reason: Keep Vein Open - Infant Interaction Infant Disposition, : [place] in Room with Family Support Person: Significant Other - Recovery Exam Fundal Tone: Firm Fundal Level: 1 Fingerbreadths Below Umbilicus Fundal Placement: Midline Lochia Amount: Scant Lochia Color: Rubra/Red Perineum Description: Edematous Episiotomy/Laceration: None Bladder Status: Indwelling Catheter in Place Urinary Elimination: Indwelling Catheter - Exam General: Alert, Oriented HEENT: Pupils Equal Neck: Supple Lungs: Clear to Auscultation Cardiovascular: Regular Rate, Regular Rhythm GI/Abdominal Exam: Normal Bowel Sounds, Soft, Non-Tender, No Organomegaly, No Distention, No Abnormal Bruit, No Mass, Pelvis Stable Extremities: Normal Inspection, Normal Range of Motion, Non-Tender, No Pedal Edema, Normal Capillary Refill Skin: Warm, Dry, Intact Wound/Incisions: Healing Well Neurological: No New Focal Deficit Psy/Mental Status: Alert, Normal Affect, Normal Mood - Problem List Review Problem List Initiated/Reviewed/Updated: Yes - My Orders Last 24 Hours: My Active Orders 01/23/19 07:32 Acetaminophen/oxyCODONE [Percocet 325-5 MG] 2 tab PO Q4H PRN 01/23/19 15:32 Simethicone 80 mg PO Q4H PRN 01/24/19 02:00 Ibuprofen [Motrin] 600 mg PO Q4HR PRN - Plan Plan:: 23 y/o s/p 1ltcs. Doing great. More anemia on CBC today however initial CBC was relatively soon post op. Suspect this not new bleeding but rather equilibration. Will recheck in the morning however. Pain controlled. Edema improved.
[2019-01-25] MEDS: Ibuprofen 600 MG Tab PO PRN ×5 (00:56→22:09)
[2019-01-25] MEDS: Acetaminophen/oxyCODONE 325-5 MG Tab PO PRN ×4 (02:53→19:46)
[2019-01-25] MEDS ORDERED: diphenhydrAMINE 50 MG/ML SDV IV ONE (06:17)
[2019-01-25] MEDS ORDERED: Sodium Chloride 0.9% 1,000 ML IV SCH ×2 (06:30→07:00)
--- NOTE | 2019-01-25 06:59 | PCM.PNPP ---
- General Info Date of Service: 01/25/19 Functional Status: Reports: Pain Controlled, Tolerating Diet, Ambulating, Urinating - Review of Systems General: Reports: Weakness Pulmonary: Reports: No Symptoms Cardiovascular: Reports: No Symptoms Gastrointestinal: Reports: Abdominal Pain (managed with medications ) Genitourinary: Reports: No Symptoms Musculoskeletal: Reports: No Symptoms Neurological: Reports: No Symptoms - Patient Data Vital Signs - Most Recent: Last Vital Signs Temp 36.4 C 01/25/19 03:27 Pulse 88 01/25/19 03:27 Resp 14 01/25/19 03:27 BP 122/80 01/25/19 03:27 Pulse Ox 100 01/25/19 03:27 Weight - Most Recent: 79.832 kg I&O - Last 24 Hours: Intake & Output 01/24/19 01/24/19 01/25/19 14:59 22:59 06:59 Intake Total 120 240 Output Total 1150 Balance -1030 240 Lab Results - Last 24 Hours: Laboratory Results - last 24 hr 01/23/19 01/23/19 01/25/19 Range/Units 00:42 00:42 05:35 WBC 12.79 H (3.98-10.04) K/mm3 RBC 2.19 L (3.98-5.22) M/mm3 Hgb 6.3 L* (11.2-15.7) gm/L Hct 20.0 L (34.1-44.9) % MCV 91.3 (79.4-94.8) fl MCH 28.8 (25.6-32.2) pg MCHC 31.5 L (32.2-35.5) g/dl RDW Std Deviation 45.1 (36.4-46.3) fL Plt Count 241 (182-369) K/mm3 MPV 8.9 L (9.4-12.3) fl Neut % (Auto) 75.3 H (34.0-71.1) % Lymph % (Auto) 16.4 L (19.3-51.7) % [place] % (Auto) 6.0 (4.7-12.5) % Eos % (Auto) 1.6 (0.7-5.8) Baso % (Auto) 0.2 (0.1-1.2) % Neut # (Auto) 9.64 H (1.56-6.13) K/mm3 Lymph # (Auto) 2.10 (1.18-3.74) K/mm3 [place] # (Auto) 0.77 H (0.24-0.36) K/mm3 Eos # (Auto) 0.20 (0.04-0.36) K/mm3 Baso # (Auto) 0.02 (0.01-0.08) K/mm3 Manual Slide Review Abnormal smear RPR Non-reactive (NONREACTIVE) Crossmatch See Detail Med Orders - Current: Current Medications Diphenhydramine HCl (Benadryl) 25 mg IVPUSH Q6H PRN PRN Reason: Itching or Nausea Emollient Ointment (Lansinoh Hpa) 0 gm TOP ASDIRECTED PRN PRN Reason: Sore Nipples Ephedrine Sulfate (Ephedrine Sulfate) 5 mg IVPUSH SEECOMMENT PRN PRN Reason: Other Sodium Chloride (Normal Saline) 1,000 mls @ 40 mls/hr IV ASDIRECTED [facility] Stop: 01/29/19 06:55 Ibuprofen (Motrin) 600 mg PO Q4HR PRN PRN Reason: Pain (moderate 4-6) Last Admin: 01/25/19 05:50 Dose: 600 mg Naloxone HCl (Narcan) 0.1 mg IVPUSH SEECOMMENT PRN PRN Reason: Respiratory Depression Oxycodone/Acetaminophen (Percocet 325-5 Mg) 2 tab PO Q4H PRN PRN Reason: Pain Last Admin: 01/25/19 02:53 Dose: 2 tab Simethicone (Simethicone) 80 mg PO Q4H PRN PRN Reason: Gas Last Admin: 01/23/19 20:00 Dose: 80 mg Discontinued Medications Acetaminophen (Tylenol) 650 mg PO Q4H PRN PRN Reason: Headache Last Admin: 01/22/19 20:15 Dose: 650 mg Bupivacaine HCl (Marcaine 0.5%) Confirm Administered Dose 30 ml .ROUTE .STK-MED ONE Stop: 01/23/19 00:32 Last Admin: 01/23/19 01:10 Dose: 20 ml Cefazolin Sodium (Ancef) Confirm Administered Dose 2 gm .ROUTE .STK-MED ONE Stop: 01/23/19 00:29 Citric Acid/Sodium Citrate (Bicitra Solution) Confirm Administered Dose 30 ml .ROUTE .STK-MED ONE Stop: 01/23/19 00:22 Last Admin: 01/23/19 00:25 Dose: 30 ml Citric Acid/Sodium Citrate (Bicitra Solution) 30 ml PO ONETIME ONE Stop: 01/23/19 00:25 Last Admin: 01/23/19 00:29 Dose: 30 ml Diphenhydramine HCl (Benadryl) 25 mg IVPUSH Q6H PRN PRN Reason: pruritis Diphenhydramine HCl (Benadryl) 50 mg IVPUSH ONETIME ONE Stop: 01/22/19 20:21 Last Admin: 01/22/19 20:28 Dose: 50 mg Diphenhydramine HCl (Benadryl) 25 mg IVPUSH Q6H PRN PRN Reason: pruritis Diphenhydramine HCl (Benadryl) 12.5 mg IV ONETIME ONE Stop: 01/25/19 06:18 Ephedrine Sulfate (Ephedrine Sulfate) 5 mg IVPUSH ASDIRECTED PRN PRN Reason: Hypotension Ephedrine Sulfate (Ephedrine In Ns) Confirm Administered Dose 25 mg .ROUTE .[employer]- MED ONE Stop: 01/23/19 01:08 Fentanyl (Sublimaze) 100 mcg EPIDUR Q3H PRN PRN Reason: Pain Last Admin: 01/22/19 09:31 Dose: 100 mcg Fentanyl (Sublimaze) Confirm Administered Dose 100 mcg .ROUTE .[employer] ONE Stop: 01/22/19 09:11 Last Admin: 01/22/19 09:53 Dose: Not Given Fentanyl (Sublimaze) 50 mcg IVPUSH Q5M PRN PRN Reason: Pain Fentanyl/Bupivacaine HCl (Fentanyl/Bupivacaine/Ns 2 Mcg-0.125% 100 Ml) 100 ml EPIDUR ASDIRECTED PRN PRN Reason: Pain Last Admin: 01/22/19 17:24 Dose: 100 ml Lactated Ringer's (Ringers, Lactated) 1,000 mls @ 100 mls/hr IV ASDIRECTED [facility] Last Admin: 01/22/19 19:44 Dose: 125 mls/hr Oxytocin/Lactated Ringer's (Pitocin In Lr 10 Units/1,000 Ml) 10 unit in 1,000 mls @ 500 mls/hr IV .CONTINUOUS VALERY Oxytocin/Lactated Ringer's (Pitocin In Lr 10 Units/1,000 Ml) 10 unit in 1,000 mls @ 12 mls/hr IV TITRATE [facility]ERY; Protocol Last Admin: 01/22/19 19:44 Dose: 2 munits/min, 12 mls/hr Azithromycin 500 mg/ Sodium (Chloride) 250 mls @ 250 mls/hr IV ONETIME ONE Stop: 01/23/19 01:24 Last Admin: 01/23/19 00:45 Dose: 250 mls/hr Cefazolin Sodium/Dextrose 2 gm (/ Premix) 50 mls @ 100 mls/hr IV ONETIME ONE Stop: 01/23/19 00:53 Last Admin: 01/23/19 04:20 Dose: Not Given Lactated Ringer's (Ringers, Lactated) 1,000 mls @ 125 mls/hr IV ASDIRECTED [facility] Lactated Ringer's (Ringers, Lactated) Confirm Administered Dose 2,000 mls @ as directed .ROUTE .STK-MED ONE Stop: 01/23/19 00:29 Dextrose/Lactated Ringer's (Dextrose 5%-Lactated Ringers) 1,000 mls @ 125 mls/ hr IV ASDIRECTED [facility] Stop: 01/23/19 10:24 Last Admin: 01/23/19 04:21 Dose: 125 mls/hr Sodium Chloride (Normal Saline) 1,000 mls @ 125 mls/hr IV ASDIRECTED [facility] Ketorolac Tromethamine (Toradol) Confirm Administered Dose 30 mg .ROUTE .STK- MED ONE Stop: 01/23/19 00:29 Ketorolac Tromethamine (Toradol) 30 mg IVPUSH Q6H [facility] Stop: 01/23/19 20:01 Last Admin: 01/23/19 20:00 Dose: 30 mg Lidocaine/Epinephrine (Xylocaine-Mpf 2%-Epi 1:200,000) Confirm Administered Dose 20 ml .ROUTE .STK-MED ONE Stop: 01/23/19 00:35 Meperidine HCl (Meperidine) Confirm Administered Dose 50 mg .ROUTE .STK-MED ONE Stop: 01/23/19 01:20 Metoclopramide HCl (Reglan) Confirm Administered Dose 10 mg .ROUTE .STK-MED ONE Stop: 01/23/19 00:22 Last Admin: 01/23/19 04:21 Dose: Not Given Metoclopramide HCl (Reglan) 10 mg IVPUSH ONETIME ONE Stop: 01/23/19 00:25 Last Admin: 01/23/19 00:25 Dose: 10 mg Morphine Sulfate (Duramorph Pf) Confirm Administered Dose 1 mg .ROUTE .STK-MED ONE Stop: 01/23/19 00:29 Nalbuphine HCl (Nubain) 10 mg IVPUSH Q2H PRN PRN Reason: pain Nalbuphine HCl (Nubain) 10 mg IVPUSH Q2H PRN PRN Reason: pain Ondansetron HCl (Zofran) Confirm Administered Dose 4 mg .ROUTE .STK-MED ONE Stop: 01/23/19 00:29 Ondansetron HCl (Zofran) 4 mg IVPUSH ONETIME PRN PRN Reason: Nausea/Vomiting Oxytocin (Pitocin) Confirm Administered Dose 10 unit .ROUTE .STK-MED ONE Stop: 01/23/19 00:29 Phenylephrine HCl (Phenylephrine In Ns 100 Mcg/Ml) Confirm Administered Dose 1 mg .ROUTE .STK-MED ONE Stop: 01/23/19 01:32 Sodium Bicarbonate (Sodium Bicarbonate 8.4%) Confirm Administered Dose 50 meq .ROUTE .STK-MED ONE Stop: 01/23/19 00:35 Sodium Chloride (Saline Flush) 10 ml FLUSH ASDIRECTED PRN PRN Reason: Keep Vein Open Sodium Chloride (Saline Flush) 10 ml FLUSH ASDIRECTED PRN PRN Reason: Keep Vein Open - Infant Interaction Infant Disposition, : [place] in Room with Family Infant Interaction: Holding Infant Feeding: Breastfed Infant; Nursed Well Support Person: Significant Other - Recovery Exam Fundal Tone: Firm Fundal Level: At Umbilicus Fundal Placement: Midline Lochia Amount: Scant, Small Lochia Color: Rubra/Red Perineum Description: Edematous, Other (see below) Other Perinuem Description: Labial edema decreasing daily Episiotomy/Laceration: None Bladder Status: Nonpalpable, Voiding Urinary Elimination: Voided - Exam General: Alert, Oriented, Cooperative Lungs: Clear to Auscultation, Normal Respiratory Effort Cardiovascular: Regular Rate, Regular Rhythm GI/Abdominal Exam: Soft, Tender (appropriate post op) Extremities: Pedal Edema Skin: Warm, Dry, Intact Wound/Incisions: Healing Well, No Drainage - Problem List & Annotations (1) 39 weeks gestation of SNOMED Code(s): 12946445 Code(s): Z3A.39 - 39 WEEKS GESTATION OF Status: Acute Current Visit: Yes (2) Normal labor SNOMED Code(s): 82812165 Code(s): O80 - ENCOUNTER FOR FULL-TERM UNCOMPLICATED DELIVERY; Z37.9 - OUTCOME OF DELIVERY, UNSPECIFIED Status: Acute Current Visit: Yes (3) Rubella non-immune status, antepartum SNOMED Code(s): 259652786 Code(s): O99.89 - OTH DISEASES AND CONDITIONS COMPL PREG/CHLDBRTH; Z28.3 - UNDERIMMUNIZATION STATUS Status: Acute Current Visit: Yes - Problem List Review Problem List Initiated/Reviewed/Updated: Yes - My Orders Last 24 Hours: My Active Orders 01/25/19 06:17 Blood Transfusion Reflex Orders [OM.PC] Routine Transfuse PRBC [Transfuse Red Blood Cells] [COMM] Routine 01/25/19 06:23 Verify Patient Consent Obtain [RC] ASDIRECTED 01/25/19 06:49 RED BLOOD CELLS LP [BBK] Routine 01/25/19 07:00 Sodium Chloride 0.9% [Normal Saline] 1,000 ml IV ASDIRECTED - Assessment Assessment:: 23 y/0 G2 now P1011 POD#2 from PLTCS for FTP in 2nd stage at 39 5/7 wks - Plan Plan:: Post op * Routine cares * Encourage breast feeding * Hb now down to 6.3. Recommend transfusion. She agrees. Plan 2 units given at lower end of 6. Reassess CBC tomorrow * Discharge home tomorrow pending clinical course
[2019-01-26] MEDS: Acetaminophen/oxyCODONE 325-5 MG Tab PO PRN ×2 (01:26→06:06)
--- NOTE | 2019-01-26 06:15 | PCM.PNPP ---
- General Info Date of Service: 01/26/19 Functional Status: Reports: Pain Controlled, Tolerating Diet, Ambulating, Urinating - Review of Systems General: Reports: No Symptoms Pulmonary: Reports: No Symptoms Cardiovascular: Reports: No Symptoms Gastrointestinal: Reports: Abdominal Pain (managed with medications ) Genitourinary: Reports: No Symptoms Musculoskeletal: Reports: No Symptoms Neurological: Reports: No Symptoms - Patient Data Vital Signs - Most Recent: Last Vital Signs Temp 36.5 C 01/25/19 21:27 Pulse 73 01/25/19 21:27 Resp 12 01/25/19 21:27 BP 109/69 01/25/19 21:27 Pulse Ox 98 01/25/19 21:27 Weight - Most Recent: 79.832 kg I&O - Last 24 Hours: Intake & Output 01/25/19 01/25/19 01/26/19 14:59 22:59 06:59 Intake Total 960 320 Balance 960 320 Lab Results - Last 24 Hours: Laboratory Results - last 24 hr 01/23/19 01/25/19 01/25/19 Range/Units 00:42 05:35 05:35 Manual Slide Review Abnormal smear Crossmatch See Detail See Detail Med Orders - Current: Current Medications Diphenhydramine HCl (Benadryl) 25 mg IVPUSH Q6H PRN PRN Reason: Itching or Nausea Emollient Ointment (Lansinoh Hpa) 0 gm TOP ASDIRECTED PRN PRN Reason: Sore Nipples Ephedrine Sulfate (Ephedrine Sulfate) 5 mg IVPUSH SEECOMMENT PRN PRN Reason: Other Sodium Chloride (Normal Saline) 1,000 mls @ 40 mls/hr IV ASDIRECTED VALERY Stop: 01/29/19 06:55 Ibuprofen (Motrin) 600 mg PO Q4HR PRN PRN Reason: Pain (moderate 4-6) Last Admin: 01/25/19 22:09 Dose: 600 mg Naloxone HCl (Narcan) 0.1 mg IVPUSH SEECOMMENT PRN PRN Reason: Respiratory Depression Oxycodone/Acetaminophen (Percocet 325-5 Mg) 2 tab PO Q4H PRN PRN Reason: Pain Last Admin: 01/26/19 06:06 Dose: 1 tab Simethicone (Simethicone) 80 mg PO Q4H PRN PRN Reason: Gas Last Admin: 01/23/19 20:00 Dose: 80 mg Discontinued Medications Acetaminophen (Tylenol) 650 mg PO Q4H PRN PRN Reason: Headache Last Admin: 01/22/19 20:15 Dose: 650 mg Bupivacaine HCl (Marcaine 0.5%) Confirm Administered Dose 30 ml .ROUTE .STK-MED ONE Stop: 01/23/19 00:32 Last Admin: 01/23/19 01:10 Dose: 20 ml Bupivacaine HCl (Sensorcaine-Mpf 0.25%) 10 ml .ROUTE .STK-MED ONE Stop: 01/23/19 00:01 Cefazolin Sodium (Ancef) Confirm Administered Dose 2 gm .ROUTE .STK-MED ONE Stop: 01/23/19 00:29 Citric Acid/Sodium Citrate (Bicitra Solution) Confirm Administered Dose 30 ml .ROUTE .STK-MED ONE Stop: 01/23/19 00:22 Last Admin: 01/23/19 00:25 Dose: 30 ml Citric Acid/Sodium Citrate (Bicitra Solution) 30 ml PO ONETIME ONE Stop: 01/23/19 00:25 Last Admin: 01/23/19 00:29 Dose: 30 ml Diphenhydramine HCl (Benadryl) 25 mg IVPUSH Q6H PRN PRN Reason: pruritis Diphenhydramine HCl (Benadryl) 50 mg IVPUSH ONETIME ONE Stop: 01/22/19 20:21 Last Admin: 01/22/19 20:28 Dose: 50 mg Diphenhydramine HCl (Benadryl) 25 mg IVPUSH Q6H PRN PRN Reason: pruritis Diphenhydramine HCl (Benadryl) 12.5 mg IV ONETIME ONE Stop: 01/25/19 06:18 Last Admin: 01/25/19 08:18 Dose: 12.5 mg Ephedrine Sulfate (Ephedrine Sulfate) 5 mg IVPUSH ASDIRECTED PRN PRN Reason: Hypotension Ephedrine Sulfate (Ephedrine In Ns) Confirm Administered Dose 25 mg .ROUTE .STK- MED ONE Stop: 01/23/19 01:08 Fentanyl (Sublimaze) 100 mcg EPIDUR Q3H PRN PRN Reason: Pain Last Admin: 01/22/19 09:31 Dose: 100 mcg Fentanyl (Sublimaze) Confirm Administered Dose 100 mcg .ROUTE .STK-MED ONE Stop: 01/22/19 09:11 Last Admin: 01/22/19 09:53 Dose: Not Given Fentanyl (Sublimaze) 50 mcg IVPUSH Q5M PRN PRN Reason: Pain Fentanyl/Bupivacaine HCl (Fentanyl/Bupivacaine/Ns 2 Mcg-0.125% 100 Ml) 100 ml EPIDUR ASDIRECTED PRN PRN Reason: Pain Last Admin: 01/22/19 17:24 Dose: 100 ml Lactated Ringer's (Ringers, Lactated) 1,000 mls @ 100 mls/hr IV ASDIRECTED VALERY Last Admin: 01/22/19 19:44 Dose: 125 mls/hr Oxytocin/Lactated Ringer's (Pitocin In Lr 10 Units/1,000 Ml) 10 unit in 1,000 mls @ 500 mls/hr IV .CONTINUOUS VALERY Oxytocin/Lactated Ringer's (Pitocin In Lr 10 Units/1,000 Ml) 10 unit in 1,000 mls @ 12 mls/hr IV TITRATE VALERY; Protocol Last Admin: 01/22/19 19:44 Dose: 2 munits/min, 12 mls/hr Azithromycin 500 mg/ Sodium (Chloride) 250 mls @ 250 mls/hr IV ONETIME ONE Stop: 01/23/19 01:24 Last Admin: 01/23/19 00:45 Dose: 250 mls/hr Cefazolin Sodium/Dextrose 2 gm (/ Premix) 50 mls @ 100 mls/hr IV ONETIME ONE Stop: 01/23/19 00:53 Last Admin: 01/23/19 04:20 Dose: Not Given Lactated Ringer's (Ringers, Lactated) 1,000 mls @ 125 mls/hr IV ASDIRECTED [facility] Lactated Ringer's (Ringers, Lactated) Confirm Administered Dose 2,000 mls @ as directed .ROUTE .STK-MED ONE Stop: 01/23/19 00:29 Dextrose/Lactated Ringer's (Dextrose 5%-Lactated Ringers) 1,000 mls @ 125 mls/ hr IV ASDIRECTED VALERY Stop: 01/23/19 10:24 Last Admin: 01/23/19 04:21 Dose: 125 mls/hr Sodium Chloride (Normal Saline) 1,000 mls @ 125 mls/hr IV ASDIRECTED [facility] Ketorolac Tromethamine (Toradol) Confirm Administered Dose 30 mg .ROUTE .STK- MED ONE Stop: 01/23/19 00:29 Ketorolac Tromethamine (Toradol) 30 mg IVPUSH Q6H [facility]ERY Stop: 01/23/19 20:01 Last Admin: 01/23/19 20:00 Dose: 30 mg Lidocaine/Epinephrine (Xylocaine-Mpf 2%-Epi 1:200,000) Confirm Administered Dose 20 ml .ROUTE .STK-MED ONE Stop: 01/23/19 00:35 Meperidine HCl (Meperidine) Confirm Administered Dose 50 mg .ROUTE .STK-MED ONE Stop: 01/23/19 01:20 Metoclopramide HCl (Reglan) Confirm Administered Dose 10 mg .ROUTE .STK-MED ONE Stop: 01/23/19 00:22 Last Admin: 01/23/19 04:21 Dose: Not Given Metoclopramide HCl (Reglan) 10 mg IVPUSH ONETIME ONE Stop: 01/23/19 00:25 Last Admin: 01/23/19 00:25 Dose: 10 mg Morphine Sulfate (Duramorph Pf) Confirm Administered Dose 1 mg .ROUTE .STK-MED ONE Stop: 01/23/19 00:29 Nalbuphine HCl (Nubain) 10 mg IVPUSH Q2H PRN PRN Reason: pain Nalbuphine HCl (Nubain) 10 mg IVPUSH Q2H PRN PRN Reason: pain Ondansetron HCl (Zofran) Confirm Administered Dose 4 mg .ROUTE .STK-MED ONE Stop: 01/23/19 00:29 Ondansetron HCl (Zofran) 4 mg IVPUSH ONETIME PRN PRN Reason: Nausea/Vomiting Oxytocin (Pitocin) Confirm Administered Dose 10 unit .ROUTE .STK-MED ONE Stop: 01/23/19 00:29 Phenylephrine HCl (Phenylephrine In Ns 100 Mcg/Ml) Confirm Administered Dose 1 mg .ROUTE .STK-MED ONE Stop: 01/23/19 01:32 Sodium Bicarbonate (Sodium Bicarbonate 8.4%) Confirm Administered Dose 50 meq .ROUTE .STK-MED ONE Stop: 01/23/19 00:35 Sodium Chloride (Saline Flush) 10 ml FLUSH ASDIRECTED PRN PRN Reason: Keep Vein Open Sodium Chloride (Saline Flush) 10 ml FLUSH ASDIRECTED PRN PRN Reason: Keep Vein Open - Interaction Disposition, : in Room with Family Interaction: Holding Infant Infant Feeding: Breastfed Infant; Nursed Well Support Person: Significant Other - Recovery Exam Fundal Tone: Firm Fundal Level: At Umbilicus Fundal Placement: Midline Lochia Amount: Scant Lochia Color: Rubra/Red Perineum Description: Edematous, Other (see below) Other Perinuem Description: Labial edema decreasing daily Episiotomy/Laceration: None Bladder Status: Voiding Urinary Elimination: Voided - Exam General: Alert, Oriented, Cooperative Lungs: Clear to Auscultation, Normal Respiratory Effort Cardiovascular: Regular Rate, Regular Rhythm GI/Abdominal Exam: Soft, Tender (appropriate post op) Extremities: Pedal Edema Skin: Warm, Dry, Intact Wound/Incisions: Healing Well, No Drainage - Problem List & Annotations (1) 39 weeks gestation of SNOMED Code(s): 61848984 Code(s): Z3A.39 - 39 WEEKS GESTATION OF Status: Acute Current Visit: Yes (2) Normal labor SNOMED Code(s): 72037016 Code(s): O80 - ENCOUNTER FOR FULL-TERM UNCOMPLICATED DELIVERY; Z37.9 - OUTCOME OF DELIVERY, UNSPECIFIED Status: Acute Current Visit: Yes (3) Rubella non-immune status, antepartum SNOMED Code(s): 767519909 Code(s): O99.89 - OTH DISEASES AND CONDITIONS COMPL PREG/CHLDBRTH; Z28.3 - UNDERIMMUNIZATION STATUS Status: Acute Current Visit: Yes - Problem List Review Problem List Initiated/Reviewed/Updated: Yes - My Orders Last 24 Hours: My Active Orders 01/25/19 06:17 Blood Transfusion Reflex Orders [OM.PC] Routine Transfuse PRBC [Transfuse Red Blood Cells] [COMM] Routine 01/25/19 06:23 Verify Patient Consent Obtain [RC] ASDIRECTED 01/25/19 07:00 Sodium Chloride 0.9% [Normal Saline] 1,000 ml IV ASDIRECTED 01/26/19 05:11 CBC W/O DIFF,HEMOGRAM [HEME] AM - Assessment Assessment:: 23 y/0 G2 now P1011 POD#3 from [facility] for FTP in 2nd stage at 39 5/7 wks - Plan Plan:: Post op * Routine cares * Encourage breast feeding * Hb now >9 after 2 units PRBCS. Feeling improved. No further monitoring needed * Discharge home today * Follow up in 2 weeks
[2019-01-26] MEDS: Ibuprofen 600 MG Tab PO PRN (08:38)
[2019-01-26] MEDS ORDERED: Measles, Mumps & Rubella Vaccine 0.5 ML SDV SUBCUT ONE (10:00)
== END 2019-01-26 10:00 | disposition home or self-care (01) | DRG 787 ==
LOC: JD.OBCHECK 01:58 → JD.OB 02:02 → JD.OBCHECK 02:20 → OBSVTOIN 01-23 01:18 → JD.OB 01-23 01:18
PROVIDERS: ADMIT Obstetrics & Gynecology; ATTEND Obstetrics & Gynecology
PROC: 10D00Z1 Extraction of Products of Conception, Low, Open Approach (ICD-10-PCS; principal; 2019-01-23)
PROC: 30233N1 Transfusion of Nonautologous Red Blood Cells into Peripheral Vein, Percutaneous Approach (ICD-10-PCS; 2019-01-26)
DX: O62.1 Secondary uterine inertia (principal); D62 Acute posthemorrhagic anemia; Z37.0 Single live birth; Z3A.39 39 weeks gestation of pregnancy; O90.81 Anemia of the puerperium
CPT/HCPCS: 36415; 36430; 51702; 59025; 85025; 85027; 86592; 86850; 86900; 86901; 86922; 94762; A9270-GY; J0456; J0690; J1200; J1885; J2175; J2274; J2370; J2405; J2590; J2765; J3010; J3490; J7042; J7050; J7120; P9016

== ENCOUNTER 2024-02-09 18:17 | Inpatient (IN) | payer OTHER ==
[2024-02-09] MEDS: Nalbuphine 10 MG/ML Syringe IVPUSH ONE (23:51)
[2024-02-10] MEDS: Nalbuphine 10 MG/ML Syringe IVPUSH ONE (02:27)
[2024-02-10] MEDS ORDERED: Nalbuphine 10 MG/ML Syringe IVPUSH PRN (06:13)
[2024-02-10] MEDS ORDERED: Sodium Chloride 0.9% 10 ML Syringe FLUSH PRN (06:13)
[2024-02-10] MEDS ORDERED: Lidocaine 1% 50 ML MDV INJECT PRN (06:13)
[2024-02-10] MEDS ORDERED: Oxytocin/Lactated Ringers 30 UNIT/500 ML BAG IV SCH (06:15)
[2024-02-10] MEDS: Ondansetron 4 MG/2 ML SDV IVPUSH PRN (06:20)
[2024-02-10 06:41] LABS: BASOPHILS PERCENT AUTO 0.2 % (0.0-1.0); EOSINOPHILS ABSOLUTE AUTO 0.1 K/mm3 (0.0-0.4); EOSINOPHILS PERCENT AUTO 0.4 % (0.0-6.0); IMMATURE GRAN ABSOLUTE AUTO 0.07 K/mm3 (0.00-0.05); IMMATURE GRAN PERCENT AUTO 0.5 % (0.0-0.4); LYMPHOCYTES ABSOLUTE AUTO 1.6 K/mm3 (1.0-4.8); LYMPHOCYTES PERCENT AUTO 12.1 % (24.0-44.0); MEAN CORPUSCULAR HEMOGLOBIN 27.6 pg (28.0-32.0); MEAN CORPUSCULAR HGB CONC 32.4 g/dl (32.0-36.0); MEAN CORPUSCULAR VOLUME 85.2 fl (83.0-99.0); MEAN PLATELET VOLUME 8.9 fl (9.4-12.3); MONOCYTES ABSOLUTE AUTO 0.9 K/mm3 (0.0-0.8); MONOCYTES PERCENT AUTO 6.9 % (0.0-8.0); NEUTROPHILS ABSOLUTE AUTO 10.8 K/mm3 (1.8-7.7); NEUTROPHILS PERCENT AUTO 79.9 % (41.0-71.0); PLATELET COUNT,PLT 328 K/mm3 (150-400); RED BLOOD CELL COUNT 3.99 M/mm3 (4.10-5.30); WHITE BLOOD CELL COUNT,WBC 13.54 K/mm3 (3.9-11.3)
[2024-02-10] MEDS: Lactated Ringers 1,000 ML IV SCH (07:50)
[2024-02-10] MEDS: Bupivacaine/fentaNYL/NS 100 ML Bag EPIDUR PRN (08:40)
[2024-02-10] MEDS: fentaNYL 100 MCG/2 ML SDV EPIDUR PRN (08:40)
[2024-02-10] MEDS ORDERED: Bupivacaine/fentaNYL/NS 100 ML Bag EPIDUR SCH (09:00)
[2024-02-10] MEDS ORDERED: ePHEDrine 50 MG/ML SDV IVPUSH PRN (11:59)
[2024-02-10] MEDS ORDERED: diphenhydrAMINE 50 MG/ML SDV IVPUSH PRN (11:59)
[2024-02-10] MEDS: Oxytocin/Lactated Ringers 30 UNIT/500 ML BAG IV SCH (13:28)
[2024-02-10] MEDS ORDERED: Docusate Sodium 100 MG Cap PO PRN (15:32)
[2024-02-10] MEDS ORDERED: Acetaminophen 325 MG Tab PO PRN (15:32)
[2024-02-10] MEDS: Benzocaine/Menthol 20%-0.5% Spray 78 GM Cannister TOP PRN (16:15)
[2024-02-10] MEDS: Witch Hazel Medicated Pads 40/Jar TOP PRN (16:15)
[2024-02-10] MEDS: Ibuprofen 600 MG Tab PO SCH (16:16)
[2024-02-10] MEDS: fentaNYL 100 MCG/2 ML SDV ONE (16:20)
[2024-02-10] MEDS: Sodium Chloride 0.9% 10 ML Syringe FLUSH SCH (16:20)
[2024-02-10] MEDS: Citalopram 10 MG Tab PO SCH (16:21)
[2024-02-11] MEDS ORDERED: Bupivacaine 0.25% 10 ML SDV ONE
[2024-02-11] MEDS: Measles, Mumps & Rubella Vaccine 0.5 ML SDV SUBCUT ONE (18:55)
== END 2024-02-11 20:40 | disposition home or self-care (01) | DRG 807 ==
LOC: JD.OBCHECK 18:17 → JD.OB 18:35 → JD.OBCHECK 02-10 07:08 → JD.OB 02-10 07:08 → OBSVTOIN 02-10 13:28 → JD.OB 02-10 13:29
PROVIDERS: ADMIT Obstetrics & Gynecology; ATTEND Obstetrics & Gynecology
PROC: 10E0XZZ Delivery of Products of Conception, External Approach (ICD-10-PCS; principal; 2024-02-10)
PROC: 0KQM0ZZ Repair Perineum Muscle, Open Approach (ICD-10-PCS; 2024-02-10)
PROC: 3E0R3BZ Introduction of Anesthetic Agent into Spinal Canal, Percutaneous Approach (ICD-10-PCS; 2024-02-10)
PROC: 00HU33Z Insertion of Infusion Device into Spinal Canal, Percutaneous Approach (ICD-10-PCS; 2024-02-10)
PROC: 10907ZC Drainage of Amniotic Fluid, Therapeutic from Products of Conception, Via Natural or Artificial Opening (ICD-10-PCS; 2024-02-10)
DX: O34.211 Maternal care for low transverse scar from previous cesarean delivery (principal); Z37.0 Single live birth; Z3A.39 39 weeks gestation of pregnancy; O77.0 Labor and delivery complicated by meconium in amniotic fluid; O70.1 Second degree perineal laceration during delivery
CPT/HCPCS: 36415; 51702; 59025; 59409; 85025; 86592; 86850; 86900; 86901; A9270-GY; J0665; J2300; J2405; J3010; J3490; J7120; J7999